=== PATIENT | male | born 1960 | race Caucasian/White ===

== ENCOUNTER 2016-04-12 21:16 | Emergency (ER) | payer BC ==
[2016-04-12] MEDS ORDERED: Sodium Chloride 0.9% 1,000 ML IV ONE (22:13)
[2016-04-12 23:07] LABS: CHLORIDE,CL 103 mmol/L (98-110); SODIUM,NA 137 mmol/L (136-146)
--- NOTE | 2016-04-12 23:18 | EDM.PDOC ---
ED HPI RENAL/ - General Chief Complaint: Genitourinary Problem Stated Complaint: PT HAS BLOOD IN URINE Time Seen by Provider: 04/12/16 22:15 Source of Information: Reports: Patient History Limitations: Reports: No limitations - History of Present Illness INITIAL COMMENTS - FREE TEXT/NARRATIVE: History of present illness: [25-year-old male coming in complaining of hematuria. Patient indicates that he has had bladder infections before and he is now having back pain.] Review of systems: As per history of present illness and below otherwise all systems reviewed and negative. Past medical history: As per history of present illness and as reviewed below otherwise noncontributory. Surgical history: As per history of present illness and as reviewed below otherwise noncontributory. Social history: No reported history of drug or alcohol abuse. Family history: As per history of present illness and as reviewed below otherwise noncontributory. Physical exam: HEENT: Atraumatic, normocephalic, pupils reactive, negative for conjunctival pallor or scleral icterus, mucous membranes moist, throat clear, neck supple, nontender, trachea midline. Lungs: Clear to auscultation, breath sounds equal bilaterally, chest nontender. Heart: S1S2, regular, negative for clicks, rubs, or JVD. Abdomen: Soft, nondistended, nontender. Negative for masses or hepatosplenomegaly. Positive costovertebral tenderness. Pelvis: Stable nontender. Genitourinary: Deferred. Rectal: Deferred. Extremities: Atraumatic, negative for cords or calf pain. Neurovascular unremarkable. Neuro: Awake, alert, oriented. Cranial nerves II through XII unremarkable. Cerebellum unremarkable. Motor and sensory unremarkable throughout. Exam nonfocal. Diagnostics: [UA, CBC, CMP] Therapeutics: [] Impression: [UTI] Plan: [] Definitive disposition and diagnosis as appropriate pending reevaluation and review of above. - Related Data Allergies/ADRs: Allergies Allergy/AdvReac Type Severity Reaction Status Date / Time No Known Allergies Allergy Verified 04/12/16 21:52 Home Meds: Home Meds . 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, s/p colostomy and colostomy closure '- Genitourinary History: Reports: None Musculoskeletal History: Reports: Fracture Other Musculoskeletal History: fx right foot Neurological History: Reports: None Psychiatric History: Reports: None Endocrine/Metabolic History: Reports: Obesity/BMI 30+ Hematologic History: Reports: None Immunologic History: Reports: None Oncologic (Cancer) History: Reports: None Dermatologic History: Reports: None Other Dermatologic History: recent hx of bilateral leg edema and ulcer on right leg - Infectious Disease History Infectious Disease History: Reports: Chicken pox, Measles - Past Surgical History Head Surgeries/Procedures: Reports: None HEENT Surgical History: Reports: Tonsillectomy Cardiovascular Surgical History: Reports: None Respiratory Surgical History: Reports: None GI Surgical History: Reports: Colostomy, Hernia, abdominal Other GI Surgeries/Procedures: hx of incisional hernia repair with mesh Male Surgical History: Reports: None Endocrine Surgical History: Reports: None Neurological Surgical History: Reports: None Musculoskeletal Surgical History: Reports: None Oncologic Surgical History: Reports: None Dermatological Surgical History: Reports: None Social & Family History - Family History Family Medical History: Noncontributory - Tobacco Use Smoking Status *Q: Never Smoker Used Tobacco, but Quit: Yes Second Hand Smoke Exposure: No - Caffeine Use Caffeine Use: Reports: None - Alcohol Use Days Per Week of Alcohol Use: 1 Number of Drinks Per Day: 5 Total Drinks Per Week: 5 - Recreational Drug Use Recreational Drug Use: No Drug Use in Last 12 Months: No ED ROS GENERAL - Review of Systems Review Of Systems: See Below (See history of present illness) ED EXAM, RENAL/ - Physical Exam Exam: See Below (See history of present illness) Course - Vital Signs Last Recorded V/S: Last Vital Signs Temp 37.2 C 04/12/16 21:53 Pulse 80 04/12/16 21:53 Resp 20 04/12/16 21:53 BP 172/80 H 04/12/16 21:53 Pulse Ox 95 04/12/16 21:53 - Orders/Labs/Meds Labs: Laboratory Tests 04/12/16 04/12/16 04/12/16 Range/Units 21:30 22:40 22:40 WBC 11.48 H (4.0-11.0) K/uL RBC 4.65 (4.50-5.90) M/uL Hgb 14.5 (13.0-17.0) g/dL Hct 44.2 (38.0-50.0) % MCV 95.1 (80.0-98.0) fL MCH 31.2 (27.0-32.0) pg MCHC 32.8 (31.0-37.0) g/dL RDW Std Deviation 46.9 (28.0-62.0) fl RDW Coeff of Sandee 14 (11.0-15.0) % Plt Count 112 L (150-400) K/uL MPV 9.60 (7.40-12.00) fL Neut % (Auto) 88.8 H (48.0-80.0) % Lymph % (Auto) 5.1 L (16.0-40.0) % Garrett % (Auto) 5.9 (0.0-15.0) % Eos % (Auto) 0.1 (0.0-7.0) % Baso % (Auto) 0.1 (0.0-1.5) % Neut # 10.2 H (1.4-5.7) K/uL Lymph # 0.6 (0.6-2.4) K/uL Garrett # 0.7 (0.0-0.8) K/uL Eos # 0.0 (0.0-0.7) K/uL Baso # 0.0 (0.0-0.1) K/uL Nucleated RBC % 0.0 /100WBC Nucleated RBCs # 0 K/uL Sodium 137 (136-146) mmol/L Potassium 4.4 (3.5-5.1) mmol/L Chloride 103 (98-110) mmol/L Carbon Dioxide 24 (21-31) mmol/L BUN 16 (6.0-23.0) mg/dL Creatinine 0.9 (0.6-1.5) mg/dL Est Cr Clr Drug Dosing 102.99 mL/min Estimated GFR (MDRD) > 60.0 ml/min Glucose 140 H (60-110) mg/dL Calcium 8.9 (8.8-10.8) mg/dL Total Bilirubin 1.4 (0.1-1.5) mg/dL AST 43 H (5-40) IU/L ALT 74 H (8-54) IU/L Alkaline Phosphatase 102 (40-150) Total Protein 7.7 (6.0-8.0) g/dL Albumin 4.0 (3.5-5.0) g/dL Globulin 3.7 H (2.0-3.5) g/dL Albumin/Globulin Ratio 1.1 L (1.3-2.8) Urine Color YELLOW Urine Appearance CLOUDY Urine pH 7.0 (5.0-8.0) Ur Specific [place] 1.020 (1.001-1.035) Urine Protein >=300 (NEGATIVE) mg/dL Urine Glucose (UA) 100 H (NEGATIVE) mg/dL Urine Ketones 15 H (NEGATIVE) mg/dL Urine Occult Blood LARGE H (NEGATIVE) Urine Nitrite POSITIVE H (NEGATIVE) Urine Bilirubin NEGATIVE (NEGATIVE) Urine Urobilinogen 4.0 H (<2.0) EU/dL Ur Leukocyte Esterase MODERATE (NEGATIVE) Urine RBC TOO NUMBEROUS TO CT (0-2/HPF) Urine WBC 30-35 (0-5/HPF) Ur Epithelial Cells OCCASIONAL (NONE-FEW) Urine Bacteria FEW (NEGATIVE) Urinalysis Comment SEE COMMENT Meds: Medications Discontinued Medications Generic Name Dose Route Start Last Admin Trade Name Freq PRN Reason Stop Dose Admin Sodium Chloride 1,000 mls @ 999 mls/hr 04/12/16 22:13 04/12/16 22:46 Normal Saline IV 04/12/16 23:13 999 mls/hr STAT ONE Administration Departure - Departure Time of Disposition: 23:17 Disposition: Home, Self-Care 01 Condition: good Clinical Impression: UTI, Urinary tract infectious disease Instructions: Urinary Tract Infection, Adult, [id number] Forms: ED Department Discharge Additional Instructions: The following information is given to patients seen in the emergency department who are being discharged to home. This information is to outline your options for follow-up care. We provide all patients seen in our emergency department with a follow-up referral. The need for follow-up, as well as the timing and circumstances, are variable depending upon the specifics of your emergency department visit. If you don't have a primary care physician on staff, we will provide you with a referral. We always advise you to contact your personal physician following an emergency department visit to inform them of the circumstance of the visit and for follow-up with them and/or the need for any referrals to a consulting specialist. The emergency department will also refer you to a specialist when appropriate. This referral assures that you have the opportunity for follow-up care with a specialist. All of these measure are taken in an effort to provide you with optimal care, which includes your follow-up. Under all circumstances we always encourage you to contact your private physician who remains a resource for coordinating your care. When calling for follow-up care, please make the office aware that this follow-up is from your recent emergency room visit. If for any reason you are refused follow-up, please contact the [facility] Emergency Department at and asked to speak to the emergency department charge nurse. Take all medication as directed Followup with primary care provider one to 2 days Return to ED as needed as discussed
[2016-04-12 23:55] VITALS: BP 155/75
== END 2016-04-12 23:45 | disposition home or self-care (01) ==
LOC: MW.ED 21:16
DX: N39.0 Urinary tract infection, site not specified (principal); E66.9 Obesity, unspecified
CPT/HCPCS: 36415; 80053; 81001; 85025; 96360; 99283; J7040

== ENCOUNTER → 2016-06-15 | Outpatient (CLI) | payer BC ==
--- NOTE | 2016-06-16 11:04 | US ---
EXAM DATE: 06/15/16 PATIENT'S AGE: 55 Patient: KASSIE MOTTA Facility: [place], [place] Site . Site : [id number] Study: US Extremity Venous [id number] 5:36:58 PM Ordering Physician: Gelacio Yen Final Report: INDICATION: Right leg swelling, history of DVT TECHNIQUE: Ultrasound venous duplex lower right extremity. Compression venous exam was performed using santos-scale, color Doppler, and spectral Doppler imaging. COMPARISON: None FINDINGS: Sonographic imaging demonstrates the right common femoral, deep femoral, superficial femoral, popliteal, posterior tibial and greater saphenous veins to be compressible with normal color Doppler blood flow. Left common femoral veins not evaluated on submitted images. IMPRESSION: 1. Technically limited study. No evidence of right lower extremity DVT. Dictated by Frederick Darnell MD @ 06/15/2016 5:41:28 PM Dictated by: Frederick Darnell MD @ 06/15/2016 17:41:34 (Electronic Signature) Report Signed by Proxy. MEHRAN
== END ==
LOC: MW.US 14:55
PROVIDERS: ATTEND Emergency Medicine
DX: M79.89 Other specified soft tissue disorders (principal)
CPT/HCPCS: 93971-26-RT; 93971-RT

== ENCOUNTER 2016-06-20 09:13 | Emergency (ER) | payer BC ==
[2016-06-20] MEDS ORDERED: Benzocaine 20% Topical Spray UD MUCMEM ONE (10:07)
[2016-06-20] MEDS ORDERED: Lidocaine 2% Viscous Solution 15 ML Cup PO ONE (10:07)
--- NOTE | 2016-06-20 10:08 | EDM.PDOC ---
ED HPI ENT - General Chief Complaint: ENT Problem Stated Complaint: TOOTH PAIN Time Seen by Provider: 06/20/16 10:03 Source of Information: Reports: Patient History Limitations: Reports: No limitations - History of Present Illness INITIAL COMMENTS - FREE TEXT/NARRATIVE: HISTORY AND PHYSICAL: [55-year-old male presenting with tooth pain #6. His dentist has been out of town for the last 2 weeks. he has an appointment tomorrow] History of Present Illness: [Patient started having pain a week ago. Now has some edema to the lower sinus on the right] Review of Systems: As per history of present illness and below otherwise all systems reviewed and negative. Past medical history: As per history of present illness and as reviewed below otherwise noncontributory. Surgical history: As per history of present illness and as reviewed below otherwise noncontributory. Social history: No reported history of drug or alcohol abuse. Family history: As per history of present illness and as reviewed below otherwise noncontributory. Physical exam: Alert gentleman answering questions appropriately. Follow directions HEENT: Atraumatic, normocehpalic, pupils reactive, negative for conjunctival pallor or scleral icterus, mucous membranes moist, throat clear, neck supple, nontender, trachea midline. Mild edema and erythema noted to the gumline tooth #6. Tender upon palpation. Right maxillary sinus with mild erythema and edema. Lungs: Clear to auscultation, breath sounds equal bilaterally, chest non tender. Heart: S1S2, regular, negative for clicks, rubs, or JVD. Abdomen: Soft, nondistended, nontender. Negative for masses or hepatossplenmegaly. Negative for costovertebral tenderness. Extremities: Atraumatic, negative for cords or calf pain. Neurovascular unremarkable. Neuro: Awake, alert, oriented. Cranial nerves II through XII unremarkable. Cerebellum unremarkable. Motor and sensory unremarkable throughout. Exam nonfocal. Diagnostics: [] Therapeutics: [Dental balls] Impression: [] Tooth abscess Plan: [Antibiotics to be given today Cephalexin 500mg 1 capsule 3 times a day x7 days] Definitive disposition and diagnosis as appropriate pending reevaluation and review of above. Timing/Duration: Reports: Day(s):, Sudden onset Severity: moderate Location: Reports: mouth Quality: Reports: Ache, Throbbing Improves with: Reports: None Worsens with: Reports: Eating Associated Symptoms: Reports: no other symptoms - Related Data Allergies/ADRs: Allergies Allergy/AdvReac Type Severity Reaction Status Date / Time No Known Allergies Allergy Verified 06/20/16 09:22 Home Meds: Home Meds . 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, s/p colostomy and colostomy closure - Genitourinary History: Reports: None Musculoskeletal History: Reports: Fracture Other Musculoskeletal History: fx right foot Neurological History: Reports: None Psychiatric History: Reports: None Endocrine/Metabolic History: Reports: Obesity/BMI 30+ Hematologic History: Reports: Other (see below) Other Hematologic History: DVT Immunologic History: Reports: None Oncologic (Cancer) History: Reports: None Dermatologic History: Reports: None Other Dermatologic History: recent hx of bilateral leg edema and ulcer on right leg - Infectious Disease History Infectious Disease History: Reports: Chicken pox - Past Surgical History Head Surgeries/Procedures: Reports: None HEENT Surgical History: Reports: Tonsillectomy Cardiovascular Surgical History: Reports: None Respiratory Surgical History: Reports: None GI Surgical History: Reports: Colostomy, Hernia, abdominal Other GI Surgeries/Procedures: hx of incisional hernia repair with mesh Male Surgical History: Reports: None Endocrine Surgical History: Reports: None Neurological Surgical History: Reports: None Musculoskeletal Surgical History: Reports: None Oncologic Surgical History: Reports: None Dermatological Surgical History: Reports: None Social & Family History - Family History Family Medical History: Noncontributory - Tobacco Use Smoking Status *Q: Never Smoker Used Tobacco, but Quit: Yes Second Hand Smoke Exposure: No - Caffeine Use Caffeine Use: Reports: None - Alcohol Use Days Per Week of Alcohol Use: 3 Number of Drinks Per Day: 3 Total Drinks Per Week: 9 - Recreational Drug Use Recreational Drug Use: No Drug Use in Last 12 Months: No ED ROS ENT - Review of Systems Review Of Systems: ROS reveals no pertinent complaints other than HPI. ED EXAM, ENT - Physical Exam Exam: See Below (see dictation) Course - Vital Signs Last Recorded V/S: Last Vital Signs Temp 36.3 C 06/20/16 09:22 Pulse 68 06/20/16 09:22 Resp 18 06/20/16 09:22 BP 184/93 H 06/20/16 09:22 Pulse Ox 97 06/20/16 09:22 Departure - Departure Time of Disposition: 10:12 Disposition: Home, Self-Care 01 Condition: good Clinical Impression: Tooth abscess Forms: ED Department Discharge Additional Instructions: The following information is given to patients seen in the emergency department who are being discharged to home. This information is to outline your options for follow-up care. We provide all patients seen in our emergency department with a follow-up referral. The need for follow-up, as well as the timing and circumstances, are variable depending upon the specifics of your emergency department visit. If you don't have a primary care physician on staff, we will provide you with a referral. We always advise you to contact your personal physician following an emergency department visit to inform them of the circumstance of the visit and for follow-up with them and/or the need for any referrals to a consulting specialist. The emergency department will also refer you to a specialist when appropriate. This referral assures that you have the opportunity for followup care with a specialist. All of these measure are taken in an effort to provide you with optimal care, which includes your followup. Under all circumstances we always encourage you to contact your private physician who remains a resource for coordinating your care. When calling for followup care, please make the office aware that this follow-up is from your recent emergency room visit. If for any reason you are refused follow-up, please contact the [facility] emergency department at and asked to speak to the emergency department charge nurse. Keep your dentist appointment tomorrow for followup care
[2016-06-20 10:46] VITALS: BP 167/65
== END 2016-06-20 10:34 | disposition home or self-care (01) ==
LOC: MW.ED 09:13
DX: K04.7 Periapical abscess without sinus (principal); E66.9 Obesity, unspecified; Z68.42 Body mass index [BMI] 45.0-49.9, adult; Z98.890 Other specified postprocedural states
CPT/HCPCS: 99282; A9270; 99283

== ENCOUNTER 2016-11-09 05:19 | Emergency (ER) | payer BC ==
--- NOTE | 2016-11-09 05:33 | EDM.PDOC ---
ED HPI GENERAL MEDICAL PROBLEM - General Chief Complaint: Genitourinary Problem Stated Complaint: PEEING BLOOD Time Seen by Provider: 11/09/16 05:33 Source of Information: Reports: Patient - History of Present Illness INITIAL COMMENTS - FREE TEXT/NARRATIVE: HISTORY AND PHYSICAL: History of present illness: [] Patient presents with 2 days of urinary frequency and dysuria no fever nausea vomiting chills sweats Review of systems: As per history of present illness and below otherwise all systems reviewed and negative. Past medical history: As per history of present illness and as reviewed below otherwise noncontributory. Surgical history: As per history of present illness and as reviewed below otherwise noncontributory. Social history: No reported history of drug or alcohol abuse. Family history: As per history of present illness and as reviewed below otherwise noncontributory. Physical exam: HEENT: Atraumatic, normocephalic, pupils reactive, negative for conjunctival pallor or scleral icterus, mucous membranes moist, throat clear, neck supple, nontender, trachea midline. Lungs: Clear to auscultation, breath sounds equal bilaterally, chest nontender. Heart: S1S2, regular, negative for clicks, rubs, or JVD. Abdomen: Soft, nondistended, nontender. Negative for masses or hepatosplenomegaly. Negative for costovertebral tenderness. Pelvis: Stable nontender. Genitourinary: Deferred. Rectal: Deferred. Extremities: Atraumatic, negative for cords or calf pain. Neurovascular unremarkable. Neuro: Awake, alert, oriented. Cranial nerves II through XII unremarkable. Cerebellum unremarkable. Motor and sensory unremarkable throughout. Exam nonfocal. Diagnostics: []UA with culture Therapeutics: []Levaquin 500 mg by mouth now and daily #10 no refill Impression: []UTI Definitive disposition and diagnosis as appropriate pending reevaluation and review of above. - Related Data Allergies Allergy/AdvReac Type Severity Reaction Status Date / Time No Known Allergies Allergy Verified 11/09/16 05:32 Home Meds: Home Meds . 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, s/p colostomy and colostomy closure '-' Genitourinary History: Reports: None Musculoskeletal History: Reports: Fracture Other Musculoskeletal History: fx right foot Neurological History: Reports: None Psychiatric History: Reports: None Endocrine/Metabolic History: Reports: Obesity/BMI 30+ Hematologic History: Reports: Other (See Below) Other Hematologic History: DVT Immunologic History: Reports: None Oncologic (Cancer) History: Reports: None Dermatologic History: Reports: None Other Dermatologic History: recent hx of bilateral leg edema and ulcer on right leg - Infectious Disease History Infectious Disease History: Reports: Chicken Pox - Past Surgical History GI Surgical History: Reports: Colostomy, Hernia, Abdominal Social & Family History - Family History Family Medical History: Noncontributory - Tobacco Use Smoking Status *Q: Never Smoker Used Tobacco, but Quit: Yes Second Hand Smoke Exposure: No - Caffeine Use Caffeine Use: Reports: None - Alcohol Use Days Per Week of Alcohol Use: 3 Number of Drinks Per Day: 3 Total Drinks Per Week: 9 - Recreational Drug Use Recreational Drug Use: No Drug Use in Last 12 Months: No ED ROS GENERAL - Review of Systems Review Of Systems: ROS reveals no pertinent complaints other than HPI. ED EXAM, GENERAL - Physical Exam Exam: See Below Course - Vital Signs Last Recorded V/S: Last Vital Signs Temp 36.9 C 11/09/16 05:24 Pulse 86 11/09/16 05:24 Resp 20 11/09/16 05:24 BP 166/88 H 11/09/16 05:24 Pulse Ox 95 11/09/16 05:24 - Orders/Labs/Meds Orders: Active Orders 24 hr Category Date Time Status CULTURE URINE [RM] Stat Lab 11/09/16 05:43 Uncollected Levofloxacin [Levaquin] Med 11/09/16 05:44 Once 500 mg PO ONETIME ONE Labs: Laboratory Tests 11/09/16 Range/Units 05:25 Urine Color RED Urine Appearance CLOUDY Urine pH 5.5 (5.0-8.0) Ur Specific [place] 1.020 (1.001-1.035) Urine Protein 100 (NEGATIVE) mg/dL Urine Glucose (UA) NEGATIVE (NEGATIVE) mg/dL Urine Ketones NEGATIVE (NEGATIVE) mg/dL Urine Occult Blood LARGE H (NEGATIVE) Urine Nitrite POSITIVE H (NEGATIVE) Urine Bilirubin SMALL H (NEGATIVE) Urine Urobilinogen 2.0 H (<2.0) EU/dL Ur Leukocyte Esterase MODERATE (NEGATIVE) Urine RBC TOO NUMBEROUS TO CT (0-2/HPF) Urine WBC 25-30 (0-5/HPF) Ur Epithelial Cells FEW (NONE-FEW) Urine Bacteria FEW (NEGATIVE) Departure - Departure Time of Disposition: 05:45 Disposition: Home, Self-Care 01 Condition: Good Clinical Impression: UTI (urinary tract infection) - Discharge Information Referrals: Arturo Brizuela MD [Primary Care Provider] - Forms: ED Department Discharge Additional Instructions: Medication as prescribed Return if symptoms persist or worsen or fever nausea vomiting chills sweats despite treatment Follow-up with primary care in 2 weeks The following information is given to patients seen in the emergency department who are being discharged to home. This information is to outline your options for follow-up care. We provide all patients seen in our emergency department with a follow-up referral. The need for follow-up, as well as the timing and circumstances, are variable depending upon the specifics of your emergency department visit. If you don't have a primary care physician on staff, we will provide you with a referral. We always advise you to contact your personal physician following an emergency department visit to inform them of the circumstance of the visit and for follow-up with them and/or the need for any referrals to a consulting specialist. The emergency department will also refer you to a specialist when appropriate. This referral assures that you have the opportunity for follow-up care with a specialist. All of these measure are taken in an effort to provide you with optimal care, which includes your follow-up. Under all circumstances we always encourage you to contact your private physician who remains a resource for coordinating your care. When calling for follow-up care, please make the office aware that this follow-up is from your recent emergency room visit. If for any reason you are refused follow-up, please contact the [facility] emergency department at and asked to speak to the emergency department charge nurse. - My Orders Last 24 Hours: My Active Orders 11/09/16 05:43 CULTURE URINE [RM] Stat 11/09/16 05:44 Levofloxacin [Levaquin] 500 mg PO ONETIME ONE - Assessment/Plan Last 24 Hours: My Active Orders 11/09/16 05:43 CULTURE URINE [RM] Stat 11/09/16 05:44 Levofloxacin [Levaquin] 500 mg PO ONETIME ONE
[2016-11-09] MEDS ORDERED: Levofloxacin 500 MG Tab PO ONE (05:44)
[2016-11-09 06:00] VITALS: BP 152/81
== END 2016-11-09 05:57 | disposition home or self-care (01) ==
LOC: MW.ED 05:19
DX: N39.0 Urinary tract infection, site not specified (principal); E66.9 Obesity, unspecified; Z93.3 Colostomy status; Z86.718 Personal history of other venous thrombosis and embolism; Z98.890 Other specified postprocedural states; Z87.891 Personal history of nicotine dependence; Z68.43 Body mass index [BMI] 50.0-59.9, adult
CPT/HCPCS: 81001; 87086; 99283; A9270; 87088; 87186; 99282

== ENCOUNTER 2018-04-19 07:50 | Day surgery (SDC) | payer BC ==
[2018-04-19] MEDS ORDERED: Lactated Ringers 1,000 ML IV SCH ×2 (08:00→11:00)
--- NOTE | 2018-04-19 08:49 | PCM.PREANE ---
Preanesthetic Assessment - Anesthesia/Transfusion/Family Hx Anesthesia History: Prior Anesthesia Without Reaction Family History of Anesthesia Reaction: No Transfusion History: No Prior Transfusion(s) Intubation History: Unknown - Review of Systems General: No Symptoms Pulmonary: No Symptoms Cardiovascular: No Symptoms Gastrointestinal: No Symptoms, Other (h/o colon polyp 3 years ago) Neurological: No Symptoms Other: Reports: None - Physical Assessment NPO Status Date: 04/18/18 NPO Status Time: 23:00 O2 Sat by Pulse Oximetry: 96 Respiratory Rate: 18 Vital Signs: Last Vital Signs Temp 36.1 C 04/19/18 08:10 Pulse 56 L 04/19/18 08:10 Resp 18 04/19/18 08:10 BP 158/85 H 04/19/18 08:10 Pulse Ox 96 04/19/18 08:10 Height: 1.83 m Weight: 168.736 kg ASA Class: 3 Mental Status: Alert & Oriented x3 Airway Class: Mallampati = 3 Dentition: Reports: Normal Dentition (broken tooth x1 rt. lower (back0) Thyro-Mental Finger Breadths: 2 Mouth Opening Finger Breadths: 3 ROM/Head Extension: Full Lungs: Clear to Auscultation, Normal Respiratory Effort Cardiovascular: Regular Rate, Regular Rhythm - Allergies Allergies/Adverse Reactions: Allergies Allergy/AdvReac Type Severity Reaction Status Date / Time No Known Allergies Allergy Verified 04/13/18 15:48 - Anesthesia Plan Pre-Op Medication Ordered: None - Acknowledgements Anesthesia Type Planned: MAC Pt an Appropriate Candidate for the Planned Anesthesia: Yes Alternatives and Risks of Anesthesia Discussed w Pt/Guardian: Yes Pt/Guardian Understands and Agrees with Anesthesia Plan: Yes PreAnesthesia Questionnaire - Past Health History Medical/Surgical History: Denies Medical/Surgical History HEENT History: Reports: None Cardiovascular History: Reports: Blood Clots/VTE/DVT Other Cardiovascular History: 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 Genitourinary History: Reports: None Musculoskeletal History: Reports: Fracture Other Musculoskeletal History: fx right foot Neurological History: Reports: None Psychiatric History: Reports: None Endocrine/Metabolic History: Reports: Obesity/BMI 30+ (morbid obesity BMI 50.5) Hematologic History: Reports: None Immunologic History: Reports: None Oncologic (Cancer) History: Reports: None Dermatologic History: Reports: Other (See Below) Other Dermatologic History: hx ulcer on right leg - Infectious Disease History Infectious Disease History: Reports: Chicken Pox - Past Surgical History Head Surgeries/Procedures: Reports: None HEENT Surgical History: Reports: Tonsillectomy Cardiovascular Surgical History: Reports: None Respiratory Surgical History: Reports: None GI Surgical History: Reports: Colon, Colonoscopy (last 3 years ago), Colostomy ( and colostomy closure), Hernia, Abdominal, Other (See Below) (exploratory laparotomy) Other GI Surgeries/Procedures: hx incisional hernia repair Male Surgical History: Reports: None Endocrine Surgical History: Reports: None Neurological Surgical History: Reports: None Musculoskeletal Surgical History: Reports: None Oncologic Surgical History: Reports: None Dermatological Surgical History: Reports: None - SUBSTANCE USE Smoking Status *Q: Never Smoker Recreational Drug Use History: No - HOME MEDS Home Medications: Home Meds Amino Ac/Whey Prot Con & Isol [Whey Protein Powder] 1 dose PO DAILY 04/13/18 [ History] - CURRENT (IN HOUSE) MEDS Current Meds: Current Medications Lactated Ringer's (Ringers, Lactated) 1,000 mls @ 125 mls/hr IV ASDIRECTED [facility] Last Admin: 04/19/18 08:30 Dose: 125 mls/hr
[2018-04-19] MEDS ORDERED: Ketamine 500 mg/10 ML MDV ONE (10:07)
[2018-04-19] MEDS ORDERED: Midazolam 1 MG/ML 2 ML SDV ONE (10:12)
[2018-04-19] MEDS ORDERED: Propofol 200 MG/20 ML SDV ONE (10:12)
--- NOTE | 2018-04-19 10:47 | PCM.OPNOTE ---
- General Post-Op/Procedure Note Date of Surgery/Procedure: 04/19/18 Operative Procedure(s): Colonoscopy Pre Op Diagnosis: Personal history of colon polyps. Post-Op Diagnosis: No evidence of neoplasia. Poor prep. Anesthesia Technique: MAC (ASA III) Primary Surgeon: Dragan Low [place] Floor Walker: Lelia Morales Condition: Good Free Text/Narrative:: DICTATION [id number] CPT CODE 35024
--- NOTE | 2018-04-19 11:19 | PCM48HPAN ---
Post Anesthesia Note - EVALUATION WITHIN 48HRS OF ANESTHETIC Vital Signs in Normal Range: Yes Patient Participated in Evaluation: Yes Respiratory Function Stable: Yes Airway Patent: Yes Cardiovascular Function Stable: Yes Hydration Status Stable: Yes Pain Control Satisfactory: Yes Nausea and Vomiting Control Satisfactory: Yes Mental Status Recovered: Yes Resp Rate: 13 - COMMENTS/OBSERVATIONS Free Text/Narrative:: no anesthesia problems
[2018-04-19 11:39] VITALS: BP 141/60
--- NOTE | 2018-04-19 12:13 | OR ---
SURGEON: Dragan Low M.D. DATE OF PROCEDURE: 04/19/2018 OPERATION PERFORMED: Colonoscopy. ANESTHESIA: MAC. ASA CLASSIFICATION: III. PREOPERATIVE DIAGNOSIS: Personal history of colon polyps. POSTOPERATIVE DIAGNOSIS: No evidence of neoplasia. DESCRIPTION OF PROCEDURE: The patient was taken to the endoscopy room and positioned on the endoscopy table in the left lateral decubitus position. Time-out was called for appropriate identification of the patient and procedure. Monitored anesthesia care was provided. The colonoscope was introduced into the rectum and advanced with minimal difficulty to the cecum. The colonoscope was retroflexed to visualize the ascending colon from below. The cecum was identified by internal landmarks. The patient has a large amount of retained viscid stool making visualization quite difficult and certainly a small polyp could have been missed. The colonoscope was slowly withdrawn. The cecum, ascending colon, hepatic flexure, transverse colon, splenic flexure, descending colon, sigmoid colon, rectum were reasonably well visualized, given the inadequacy of the prep. No obvious tumor masses were identified. No diverticular changes were noted. I did not see an area of anastomosis and certainly no obvious anastomotic stricture was identified. There were no angiodysplastic changes. Once the colonoscope was withdrawn to the rectum, it was retroflexed to visualize the anal orifice from above. Again, no tumors or polyps were seen and there were no acute hemorrhoidal changes. The colonoscope was then straightened, the rectum aspirated, and the colonoscope removed. The patient tolerated the procedure well and was taken to recovery room in stable condition. TRACE / BLADIMIR /[id number]
== END 2018-04-19 11:50 | disposition home or self-care (01) ==
LOC: MW.SDS 07:50
PROVIDERS: ATTEND Surgery
DX: Z12.11 Encounter for screening for malignant neoplasm of colon (principal); I82.441 Acute embolism and thrombosis of right tibial vein; K43.9 Ventral hernia without obstruction or gangrene; E66.9 Obesity, unspecified; Z68.43 Body mass index [BMI] 50.0-59.9, adult
CPT/HCPCS: 45378; J2001; J2250; J2704; J7120

== ENCOUNTER 2018-04-21 21:56 | Emergency (ER) | payer BC ==
--- NOTE | 2018-04-21 22:24 | EDM.PDOC ---
ED HPI GENERAL MEDICAL PROBLEM - General Chief Complaint: ENT Problem Stated Complaint: NOSE BLEED Time Seen by Provider: 04/21/18 22:12 - History of Present Illness INITIAL COMMENTS - FREE TEXT/NARRATIVE: HISTORY AND PHYSICAL: History of present illness: The patient is a 57 y/o male who presents with complaints of bleeding from the left side of his nose that started this evening. He says he put some tissue in there and it seemed to stop the bleeding. The patient underwent a colonoscopy yesterday for which she received IV sedation and had an oxygen mask in place and he is not sure if that contributed to the problem. The patient has no cough upper respiratory symptoms and he did not feel any blood going down the back of his throat. The patient says he may have sleep apnea and he needs to be tested for that and he does snore at night but he is not currently on a sleep apnea machine. The patient is concerned about the bleeding and came for evaluation. He is currently on no anticoagulation therapy. Review of systems: As per history of present illness and below otherwise all systems reviewed and negative. Past medical history: As per history of present illness and as reviewed below otherwise noncontributory. Surgical history: As per history of present illness and as reviewed below otherwise noncontributory. Social history: No reported history of drug or alcohol abuse. Family history: As per history of present illness and as reviewed below otherwise noncontributory. Physical exam: General: Well-developed well-nourished overweight man who is nontoxic and vital signs are noted by me. I pieced of tissue is in his left nares which she removed on my evaluation. HEENT: Atraumatic, normocephalic, pupils reactive, negative for conjunctival pallor or scleral icterus, mucous membranes moist, throat clear, neck supple, nontender, trachea midline. There is no posterior oropharyngeal bleeding. Bilateral nasal mucosa and septum's are excoriated and erythematous without any bleeding or lesion seen on the right but on the left side in the anterior septum there is a scab-like area visualized without active bleeding. Lungs: Clear to auscultation, breath sounds equal bilaterally, chest nontender. Heart: S1S2, regular rate and rhythm no overt murmurs Abdomen: Soft, nondistended, nontender. NABS Pelvis: Deferred Genitourinary: Deferred. Rectal: Deferred. Extremities: Atraumatic, full range of motion without deficits Neurovascular unremarkable. Neuro: Awake, alert, oriented. Cranial nerves II through XII unremarkable. Cerebellum unremarkable. Motor and sensory unremarkable throughout. Exam nonfocal. Diagnostics: [] Therapeutics: I gave the patient and nasal clip to utilize if there is any more oozing and I instructed him on how to place Vaseline on a Q-tip and place the Vaseline on his nasal septum promote natural healing of the excoriated area. Impression: Minor epistaxis left of anterior septum Definitive disposition and diagnosis as appropriate pending reevaluation and review of above. 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 Genitourinary History: Reports: None Musculoskeletal History: Reports: Fracture Other Musculoskeletal History: fx right foot Neurological History: Reports: None Psychiatric History: Reports: None Endocrine/Metabolic History: Reports: Obesity/BMI 30+ (morbid obesity BMI 50.5) Hematologic History: Reports: None Immunologic History: Reports: None Oncologic (Cancer) History: Reports: None Dermatologic History: Reports: Other (See Below) Other Dermatologic History: hx ulcer on right leg - Infectious Disease History Infectious Disease History: Reports: Chicken Pox - Past Surgical History Head Surgeries/Procedures: Reports: None HEENT Surgical History: Reports: Tonsillectomy Cardiovascular Surgical History: Reports: None Respiratory Surgical History: Reports: None GI Surgical History: Reports: Colon, Colonoscopy (last 3 years ago), Colostomy ( and colostomy closure), Hernia, Abdominal, Other (See Below) (exploratory laparotomy) Other GI Surgeries/Procedures: hx incisional hernia repair Male Surgical History: Reports: None Endocrine Surgical History: Reports: None Neurological Surgical History: Reports: None Musculoskeletal Surgical History: Reports: None Oncologic Surgical History: Reports: None Dermatological Surgical History: Reports: None Social & Family History - Family History Family Medical History: Noncontributory - Tobacco Use Smoking Status *Q: Never Smoker - Caffeine Use Caffeine Use: Reports: None Caffeine Use Comment: "alot" - Recreational Drug Use Recreational Drug Use: No ED ROS GENERAL - Review of Systems Review Of Systems: ROS reveals no pertinent complaints other than HPI. ED EXAM, GENERAL - Physical Exam Exam: See Below (See dictation) Course - Vital Signs Last Recorded V/S: Last Vital Signs Temp 36.2 C 04/21/18 22:05 Pulse 55 L 04/21/18 22:05 Resp 18 04/21/18 22:05 BP 171/83 H 04/21/18 22:05 Pulse Ox 94 L 04/21/18 22:05 - Orders/Labs/Meds Orders: Active Orders 24 hr Category Date Time Status Communication Order [RC] STAT Care 04/21/18 22:18 Ordered Departure - Departure Time of Disposition: 22:23 Disposition: Home, Self-Care 01 Condition: Good Clinical Impression: Nosebleed - Discharge Information Additional Instructions: The following information is given to patients seen in the emergency department who are being discharged to home. This information is to outline your options for follow-up care. We provide all patients seen in our emergency department with a follow-up referral. The need for follow-up, as well as the timing and circumstances, are variable depending upon the specifics of your emergency department visit. If you don't have a primary care physician on staff, we will provide you with a referral. We always advise you to contact your personal physician following an emergency department visit to inform them of the circumstance of the visit and for follow-up with them and/or the need for any referrals to a consulting specialist. The emergency department will also refer you to a specialist when appropriate. This referral assures that you have the opportunity for followup care with a specialist. All of these measure are taken in an effort to provide you with optimal care, which includes your followup. Under all circumstances we always encourage you to contact your private physician who remains a resource for coordinating your care. When calling for followup care, please make the office aware that this follow-up is from your recent emergency room visit. If for any reason you are refused follow-up, please contact the [facility] emergency department at and ask to speak to the emergency department charge nurse. [facility] Primary care- Internal Medicine and Family [address] [address] Push hydration and use cool mist humidifier at sleep times and rest times to promote moisture in the air that you are breathing and to soothe the nasal passages. Please Pl., Vaseline or any petroleum-based product you have using a Q -tip gently inside the nose as shown to protect the area and keep it moisturized. Use nose clip you have been given as needed. Return to ER as needed and as discussed and call and schedule a follow-up appoint with your provider in the clinic - My Orders Last 24 Hours: My Active Orders 04/21/18 22:18 Communication Order [RC] STAT - Assessment/Plan Last 24 Hours: My Active Orders 04/21/18 22:18 Communication Order [RC] STAT
[2018-04-21 22:49] VITALS: BP 152/72
== END 2018-04-21 22:30 | disposition home or self-care (01) ==
LOC: MW.ED 21:56
DX: R04.0 Epistaxis (principal)
CPT/HCPCS: 99282; 99283

== ENCOUNTER 2018-06-23 20:42 | Emergency (ER) | payer BC ==
--- NOTE | 2018-06-23 20:51 | EDM.PDOC ---
ED HPI GENERAL MEDICAL PROBLEM - General Chief Complaint: Laceration Stated Complaint: LEFT LEG INJURY Time Seen by Provider: 06/23/18 20:44 Source of Information: Reports: Patient History Limitations: Reports: No Limitations - History of Present Illness INITIAL COMMENTS - FREE TEXT/NARRATIVE: HISTORY AND PHYSICAL: History of present illness: Patient is a 57-year-old male who presents to the emergency room with complaints of a laceration to his left lower extremity. He states he was getting into bed when a drawer from the face of the bed was out resulting in a laceration. He denies any other injury, trauma or falls. No current bleeding noted. States his tetanus has been updated within the last 5 years. Review of systems: As per history of present illness and below otherwise all systems reviewed and negative. Past medical history: As per history of present illness and as reviewed below otherwise noncontributory. Surgical history: As per history of present illness and as reviewed below otherwise noncontributory. Social history: See social history for further information Family history: As per history of present illness and as reviewed below otherwise noncontributory. Physical exam: General: Well-developed and well-nourished 57-year-old male. Alert and oriented. Nontoxic appearing and in no acute distress. HEENT: Atraumatic, normocephalic, pupils equal and reactive bilaterally, negative for conjunctival pallor or scleral icterus, mucous membranes moist, trachea midline. No drooling or trismus noted. No meningeal signs. No hot potato voice noted. Lungs: Clear to auscultation, breath sounds equal bilaterally, chest nontender. Heart: S1S2, regular rate and rhythm without overt murmur Abdomen: Soft, nondistended, obese, nontender. Skin: 4 cm laceration to left lateral midshin. Otherwise skin is intact, warm, dry. No lesions or rashes noted. Extremities: See skin for details, moves all extremities per self without difficulty or deficits, generalized lower extremity edema bilaterally (normal variance). Neurovascular unremarkable. Neuro: Awake, alert, oriented. Cranial nerves II through XII unremarkable. Cerebellum unremarkable. Motor and sensory unremarkable throughout. Exam nonfocal. Notes: 1% lidocaine was used to anesthetize the area. Chlorhexidine and wound wash was used to cleanse the area. Usual and customary procedures were followed for suture placement. 4-0 nylon, #9 interrupted sutures placed. Patient tolerated well. Bacitracin nonstick dressing applied with education.Supportive care measures were reviewed and discussed. Voices understanding and is agreeable to plan of care. Denies any further questions or concerns at this time. Diagnostics: None Therapeutics: Wound care, 1% lidocaine, bacitracin nonstick dressing Prescription: None Impression: Laceration Plan: 1. Keep the area clean and dry. Continue to monitor for signs of infection. Sutures to be removed in 7-10 days. 2. Tylenol and/or ibuprofen as needed for pain management. 3. Please follow-up with your primary care provider in the next 1-2 days. Return to the ED as needed and as discussed. Definitive disposition and diagnosis as appropriate pending reevaluation and review of above. 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 Genitourinary History: Reports: None Musculoskeletal History: Reports: Fracture Other Musculoskeletal History: fx right foot Neurological History: Reports: None Psychiatric History: Reports: None Endocrine/Metabolic History: Reports: Obesity/BMI 30+ (morbid obesity BMI 50.5) Hematologic History: Reports: None Immunologic History: Reports: None Oncologic (Cancer) History: Reports: None Dermatologic History: Reports: Other (See Below) Other Dermatologic History: hx ulcer on right leg - Infectious Disease History Infectious Disease History: Reports: Chicken Pox - Past Surgical History Head Surgeries/Procedures: Reports: None HEENT Surgical History: Reports: Tonsillectomy Cardiovascular Surgical History: Reports: None Respiratory Surgical History: Reports: None GI Surgical History: Reports: Colon, Colonoscopy (last 3 years ago), Colostomy ( and colostomy closure), Hernia, Abdominal, Other (See Below) (exploratory laparotomy) Other GI Surgeries/Procedures: hx incisional hernia repair Male Surgical History: Reports: None Endocrine Surgical History: Reports: None Neurological Surgical History: Reports: None Musculoskeletal Surgical History: Reports: None Oncologic Surgical History: Reports: None Dermatological Surgical History: Reports: None Social & Family History - Family History Family Medical History: Noncontributory - Caffeine Use Caffeine Use: Reports: None Caffeine Use Comment: "alot" ED ROS GENERAL - Review of Systems Review Of Systems: ROS reveals no pertinent complaints other than HPI. ED EXAM, SKIN/RASH Exam: See Below (See dictation) ED SKIN PROCEDURES - Laceration/Wound Repair Left leg Lac/Wound length In cm: 4 Appearance: Subcutaneous, Linear Anesthetic Type: Local Local Anesthesia - Lidocaine (Xylocaine): 1% Plain Local Anesthetic Volume: Other (7) Skin Prep: Chlorhexidine (Hibiciens), Saline Saline Irrigation (cc's): 25 Exploration/Debridement/Repair: Wound Explored, No Foreign Material Found Closed with: Sutures Suture Size: 4-0 # of Sutures: 9 Suture Type: Nylon Drain Placement: No Sterile Dressing Applied: Provider Tetanus Status Addressed: Yes Complications: No Course - Vital Signs Last Recorded V/S: Last Vital Signs Temp 97.7 F 06/23/18 20:44 Pulse 62 06/23/18 20:44 Resp 25 H 06/23/18 20:44 BP 152/86 H 06/23/18 20:44 Pulse Ox 98 06/23/18 20:44 - Orders/Labs/Meds Meds: Medications Discontinued Medications Generic Name Dose Route Start Last Admin Trade Name Prem PRN Reason Stop Dose Admin Bacitracin 1 dose 06/23/18 20:54 06/23/18 21:01 Bacitracin Oint 1 Gm TOP 06/23/18 20:55 1 dose ONETIME ONE Administration Lidocaine HCl 10 ml 06/23/18 20:45 06/23/18 20:54 Xylocaine-Mpf 1% INJECT 06/23/18 20:46 10 ml ONETIME ONE Administration Departure - Departure Time of Disposition: 21:17 Disposition: Home, Self-Care 01 Clinical Impression: Laceration - Discharge Information Instructions: Laceration Care, Adult, [id number] Referrals: Arturo Brizuela MD [Primary Care Provider] - Forms: ED Department Discharge Additional Instructions: The following information is given to patients seen in the emergency department who are being discharged to home. This information is to outline your options for follow-up care. We provide all patients seen in our emergency department with a follow-up referral. The need for follow-up, as well as the timing and circumstances, are variable depending upon the specifics of your emergency department visit. If you don't have a primary care physician on staff, we will provide you with a referral. We always advise you to contact your personal physician following an emergency department visit to inform them of the circumstance of the visit and for follow-up with them and/or the need for any referrals to a consulting specialist. The emergency department will also refer you to a specialist when appropriate. This referral assures that you have the opportunity for follow-up care with a specialist. All of these measure are taken in an effort to provide you with optimal care, which includes your follow-up. Under all circumstances we always encourage you to contact your private physician who remains a resource for coordinating your care. When calling for follow-up care, please make the office aware that this follow-up is from your recent emergency room visit. If for any reason you are refused follow-up, please contact the [facility] Emergency Department at and asked to speak to the emergency department charge nurse. [facility] Primary [facility] [address] [place] [id number] [facility] [address] [place] [id number] 1. Keep the area clean and dry. Continue to monitor for signs of infection. Sutures to be removed in 7-10 days. 2. Tylenol and/or ibuprofen as needed for pain management. 3. Please follow-up with your primary care provider in the next 1-2 days. Return to the ED as needed and as discussed.
[2018-06-23] MEDS ORDERED: Bacitracin Oint 1 GM U/D Packet TOP ONE (20:54)
[2018-06-23 22:36] VITALS: BP 134/85
== END 2018-06-23 21:30 | disposition home or self-care (01) ==
LOC: MW.ED 20:42
DX: S81.812A Laceration without foreign body, left lower leg, initial encounter (principal); Z91.09 Other allergy status, other than to drugs and biological substances; W22.8XXA Striking against or struck by other objects, initial encounter
CPT/HCPCS: 12002; 99282; J2001

== ENCOUNTER 2018-06-23 23:04 | Emergency (ER) | payer BC ==
[2018-06-23] MEDS ORDERED: Octyl 2-Cyanoacrylate 1 Tube TOP ONE (23:09)
[2018-06-23] MEDS ORDERED: Lidocaine/EPINEPHrine/Tetracaine Soln 1 ML TOP ONE (23:09)
[2018-06-23] MEDS ORDERED: predniSONE 20 MG Tab PO ONE (23:28)
[2018-06-23] MEDS ORDERED: diphenhydrAMINE 50 MG/ML SDV IM ONE (23:28)
--- NOTE | 2018-06-23 23:33 | EDM.PDOC ---
ED HPI GENERAL MEDICAL PROBLEM - General Chief Complaint: Allergic Reaction Stated Complaint: ALLERGIC REACTION Time Seen by Provider: 06/23/18 23:22 - History of Present Illness INITIAL COMMENTS - FREE TEXT/NARRATIVE: HISTORY AND PHYSICAL: History of present illness: The patient is a 57-year-old male who was seen here a few hours ago for a laceration to his left leg which was repaired without complication and who presents with complaints of swelling to the left side of his lip and eye that started when he was going to the pharmacy for his prescriptions. The patient is a known user of lisinopril/hydrochlorothiazide and has not had any issues with it. The patient denies any shortness of breath rash itching hives or any other speech swallow or breathing issues. He tells me that he has had a laceration on his face that was repaired in the past week using an anesthetic and had no complications. He has no localized reaction at the wound on the left leg. He was concerned so he came back for reevaluation Review of systems: As per history of present illness and below otherwise all systems reviewed and negative. Past medical history: As per history of present illness and as reviewed below otherwise noncontributory. Surgical history: As per history of present illness and as reviewed below otherwise noncontributory. Social history: No reported history of drug or alcohol abuse. Family history: As per history of present illness and as reviewed below otherwise noncontributory. Physical exam: : Well-developed well-nourished obese man who is nontoxic and speaking clearly and easily in the ED. He is not breathless and he has no speech changes HEENT: Atraumatic, normocephalic, pupils reactive, negative for conjunctival pallor or scleral icterus, mucous membranes moist, throat clear, neck supple, nontender, trachea midline. There is no oropharyngeal or tongue swelling and the left upper lip is seen to have some minimal soft tissue swelling and there is some minimal soft tissue swelling of his left eyelid. Lungs: Clear to auscultation, breath sounds equal bilaterally, chest nontender. Easing or stridor Heart: S1S2, regular, negative for clicks, rubs, or JVD. Abdomen: Soft, nondistended, nontender. NABS globular abdomen due to prior surgeries but no tenderness rebound or guarding. Pelvis: Stable nontender. Genitourinary: Deferred. Rectal: Deferred. Extremities: Atraumatic, dressing is in place in the left lower extremity negative for cords or calf pain. Neurovascular unremarkable. Neuro: Awake, alert, oriented. Cranial nerves II through XII unremarkable. Cerebellum unremarkable. Motor and sensory unremarkable throughout. Exam nonfocal. Skin: There is no redness urticaria rashes or itching seen by the patient Diagnostics: [] Therapeutics: Benadryl IM prednisone by mouth I discussed with the patient and that he is on lisinopril/ hydrochlorothiazide which he could have a sudden idiopathic angioedema from. I do not feel that this is related to his laceration repair as he has been exposed to anesthetics in the past without complication and he has no generalized allergic reaction and it is only localized to his face. I explained to them that this is very consistent with this medication and that he needs to stop taking it and discuss with a provider in the clinic changing that med Impression: Mild angioedema status post lisinopril use Definitive disposition and diagnosis as appropriate pending reevaluation and review of above. - Related Data Allergies Allergy/AdvReac Type Severity Reaction Status Date / Time lidocaine Allergy Facial Verified 06/23/18 23:09 Swelling marijuana Allergy Hives Verified 06/23/18 20:50 Home Meds: Home Meds Aspirin 325 mg PO ASDIRECTED 06/23/18 [History] Lisinopril/Hydrochlorothiazide [Lisinopril-HCTZ 10-12.5 MG] 1 tab PO DAILY 06/23 [History] cephALEXin [Keflex] 500 mg PO BID 5 Days #10 cap 06/23/18 [Rx] Past Medical History - Past Health History Medical/Surgical History: Denies Medical/Surgical History HEENT History: Reports: None Cardiovascular History: Reports: Blood Clots/VTE/DVT Other Cardiovascular History: 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 Genitourinary History: Reports: None Musculoskeletal History: Reports: Fracture Other Musculoskeletal History: fx right foot Neurological History: Reports: None Psychiatric History: Reports: None Endocrine/Metabolic History: Reports: Obesity/BMI 30+ Hematologic History: Reports: None Immunologic History: Reports: None Oncologic (Cancer) History: Reports: None Dermatologic History: Reports: Other (See Below) Other Dermatologic History: hx ulcer on right leg - Infectious Disease History Infectious Disease History: Reports: Chicken Pox - Past Surgical History Head Surgeries/Procedures: Reports: None HEENT Surgical History: Reports: Tonsillectomy Cardiovascular Surgical History: Reports: None Respiratory Surgical History: Reports: None GI Surgical History: Reports: Colon, Colonoscopy, Colostomy, Hernia, Abdominal, Other (See Below) Other GI Surgeries/Procedures: hx incisional hernia repair Male Surgical History: Reports: None Endocrine Surgical History: Reports: None Neurological Surgical History: Reports: None Musculoskeletal Surgical History: Reports: None Oncologic Surgical History: Reports: None Dermatological Surgical History: Reports: None Social & Family History - Family History Family Medical History: Noncontributory - Tobacco Use Smoking Status *Q: Never Smoker - Caffeine Use Caffeine Use: Reports: Coffee Caffeine Use Comment: "alot" - Recreational Drug Use Recreational Drug Use: No ED ROS ALLERGIC REACTION - Review of Systems Review Of Systems: ROS reveals no pertinent complaints other than HPI. ED EXAM GENERAL NO PERIP PULSE - Physical Exam Exam: See Below (See dictation) Course - Vital Signs Last Recorded V/S: Last Vital Signs Temp 36.7 C 06/23/18 23:09 Pulse 67 06/23/18 23:09 Resp 22 H 06/23/18 23:09 BP 150/77 H 06/23/18 23:09 Pulse Ox 96 06/23/18 23:09 - Orders/Labs/Meds Orders: Active Orders 24 hr Category Date Time Status diphenhydrAMINE [Benadryl] Med 06/23/18 23:28 Once 50 mg IM ONETIME ONE predniSONE Med 06/23/18 23:28 Once 20 mg PO ONETIME ONE Medication Orders Diphenhydramine HCl (Benadryl) 50 mg IM ONETIME ONE Stop: 06/23/18 23:29 Prednisone (Prednisone) 20 mg PO ONETIME ONE Stop: 06/23/18 23:29 Meds: Medications Generic Name Dose Route Start Last Admin Trade Name Freq PRN Reason Stop Dose Admin Diphenhydramine HCl 50 mg 06/23/18 23:28 Benadryl IM 06/23/18 23:29 ONETIME ONE Prednisone 20 mg 06/23/18 23:28 Prednisone PO 06/23/18 23:29 ONETIME ONE Discontinued Medications Generic Name Dose Route Start Last Admin Trade Name Prem PRN Reason Stop Dose Admin Lidocaine/Tetracaine 1 ml 06/23/18 23:09 Let Soln TOP 06/23/18 23:10 ONETIME ONE Octyl Cyanoacrylate 1 applic 06/23/18 23:09 Dermabond Advance TOP 06/23/18 23:10 ONETIME ONE Departure - Departure Time of Disposition: 23:31 Disposition: Home, Self-Care 01 Condition: Good Clinical Impression: Angioedema due to angiotensin converting enzyme inhibitor (JOHN-I) - Discharge Information Referrals: PCP,None [Primary Care Provider] - Additional Instructions: The following information is given to patients seen in the emergency department who are being discharged to home. This information is to outline your options for follow-up care. We provide all patients seen in our emergency department with a follow-up referral. The need for follow-up, as well as the timing and circumstances, are variable depending upon the specifics of your emergency department visit. If you don't have a primary care physician on staff, we will provide you with a referral. We always advise you to contact your personal physician following an emergency department visit to inform them of the circumstance of the visit and for follow-up with them and/or the need for any referrals to a consulting specialist. The emergency department will also refer you to a specialist when appropriate. This referral assures that you have the opportunity for followup care with a specialist. All of these measure are taken in an effort to provide you with optimal care, which includes your followup. Under all circumstances we always encourage you to contact your private physician who remains a resource for coordinating your care. When calling for followup care, please make the office aware that this follow-up is from your recent emergency room visit. If for any reason you are refused follow-up, please contact the [facility] emergency department at and ask to speak to the emergency department charge nurse. [facility] Primary care- Internal Medicine and Family [address] [address] Please contact your provider in the clinic on Tuesday morning to discuss changing her medication and do not take the lisinopril/hydrochlorothiazide. Take [id number] Benadryl 50 mg every 6 hours for the next 24-36 hours and take the prednisone you have been prescribed starting tomorrow as he received a dose here in the ED. Please do all instructions given to you from your earlier ED visit for the laceration and return to ER as needed and as discussed. The swelling will slowly improve over the next 6-12 hours. - My Orders Last 24 Hours: My Active Orders 06/23/18 23:28 diphenhydrAMINE [Benadryl] 50 mg IM ONETIME ONE predniSONE 20 mg PO ONETIME ONE - Assessment/Plan Last 24 Hours: My Active Orders 06/23/18 23:28 diphenhydrAMINE [Benadryl] 50 mg IM ONETIME ONE predniSONE 20 mg PO ONETIME ONE
[2018-06-23 23:47] VITALS: BP 117/65
== END 2018-06-23 23:45 | disposition home or self-care (01) ==
LOC: MW.ED 23:04
DX: T78.3XXA Angioneurotic edema, initial encounter (principal); T46.4X5A Adverse effect of angiotensin-converting-enzyme inhibitors, initial encounter; Z79.82 Long term (current) use of aspirin; Z79.899 Other long term (current) drug therapy; Z88.8 Allergy status to other drugs, medicaments and biological substances; Z91.09 Other allergy status, other than to drugs and biological substances
CPT/HCPCS: 96372; 99283; A9270; J1200

== ENCOUNTER 2018-07-06 09:09 | Emergency (ER) | payer BC ==
[2018-07-06 09:25] VITALS: BP 132/66
== END 2018-07-06 09:26 | disposition left against medical advice (07) ==
LOC: MW.ED 09:09
DX: Z53.21 Procedure and treatment not carried out due to patient leaving prior to being seen by health care provider (principal)

== ENCOUNTER 2019-05-18 22:12 | Emergency (ER) | payer BC ==
--- NOTE | 2019-05-18 22:40 | EDM.PDOC ---
ED HPI GENERAL MEDICAL PROBLEM - General Chief Complaint: ENT Problem Stated Complaint: CHILLS/SORE THROAT Time Seen by Provider: 05/18/19 22:35 Source of Information: Reports: Patient History Limitations: Reports: No Limitations - History of Present Illness INITIAL COMMENTS - FREE TEXT/NARRATIVE: This 58-year-old gentleman presents emergency room with a sore throat. Patient states his presented last week with strep. Onset: Today Duration: Day(s): Location: Reports: Head Quality: Reports: Ache Severity: Mild Improves with: Reports: None Worsens with: Reports: None Associated Symptoms: Reports: No Other Symptoms Treatments [employer]: Reports: Acetaminophen Throat Pain Score (Numeric/FACES): 6 - Related Data Allergies Allergy/AdvReac Type Severity Reaction Status Date / Time hydrochlorothiazide Allergy Swelling Verified 05/18/19 22:27 lisinopril Allergy Swelling Verified 05/18/19 22:27 marijuana Allergy Hives Verified 05/18/19 22:27 Home Meds: Home Meds Aspirin 325 mg PO ASDIRECTED 06/23/18 [History] Celecoxib 200 mg PO DAILY 05/18/19 [History] Losartan/Hydrochlorothiazide [Losartan-HCTZ 50-12.5 MG] 1 tab PO DAILY 05/18/19 [History] Warfarin Sodium 5 mg PO DAILY 05/18/19 [History] Past Medical History - Past Health History Medical/Surgical History: Denies Medical/Surgical History HEENT History: Reports: None Cardiovascular History: Reports: Blood Clots/VTE/DVT Other Cardiovascular History: 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 Genitourinary History: Reports: None Musculoskeletal History: Reports: Fracture, RA Other Musculoskeletal History: fx right foot Neurological History: Reports: None Psychiatric History: Reports: None Endocrine/Metabolic History: Reports: Obesity/BMI 30+ Hematologic History: Reports: Other (See Below) Other Hematologic History: easy bruising/bleeding Immunologic History: Reports: None Oncologic (Cancer) History: Reports: None Dermatologic History: Reports: Other (See Below) Other Dermatologic History: hx ulcer on right leg - Infectious Disease History Infectious Disease History: Reports: Chicken Pox - Past Surgical History Head Surgeries/Procedures: Reports: None HEENT Surgical History: Reports: Tonsillectomy GI Surgical History: Reports: Colon, Colonoscopy, Colostomy, Hernia, Abdominal, Other (See Below) Other GI Surgeries/Procedures: hx incisional hernia repair Male Surgical History: Reports: None Neurological Surgical History: Reports: None Oncologic Surgical History: Reports: None Social & Family History - Family History Family Medical History: Noncontributory - Tobacco Use Used Tobacco, but Quit: Yes Month/Year Tobacco Last Used: 2009 - Caffeine Use Caffeine Use: Reports: Coffee Caffeine Use Comment: "alot" - Recreational Drug Use Recreational Drug Use: No ED ROS ENT - Review of Systems Review Of Systems: See Below Constitutional: Reports: No Symptoms, Fever HEENT: Reports: No Symptoms, Throat Pain Respiratory: Reports: No Symptoms Cardiovascular: Reports: No Symptoms Endocrine: Reports: No Symptoms GI/Abdominal: Reports: No Symptoms : Reports: No Symptoms Musculoskeletal: Reports: No Symptoms Skin: Reports: No Symptoms Neurological: Reports: No Symptoms Psychiatric: Reports: No Symptoms Hematologic/Lymphatic: Reports: No Symptoms Immunologic: Reports: No Symptoms ED EXAM, ENT - Physical Exam Exam: See Below Exam Limited By: No Limitations General Appearance: Alert, WD/WN, No Apparent Distress Ears: Normal External Exam, Normal Canal Nose: Normal Inspection Mouth/Throat: Normal Inspection Head: Atraumatic, Normocephalic Neck: Normal Inspection Cardiovascular: Normal Peripheral Pulses GI/Abdominal: Normal Bowel Sounds Psychiatric: Normal Affect Skin: Warm Course - Vital Signs Text/Narrative:: This 58-year-old male presents the emergency room chief complaint of sore throat. Patient states his was positive for strep. He is concerned. Patient's strep culture is positive patient will be treated for strep pharyngitis. Last Recorded V/S: Last Vital Signs Temp 96.6 F L 05/18/19 22:20 Pulse 70 05/18/19 22:20 Resp 22 H 05/18/19 22:20 BP 129/75 05/18/19 22:20 Pulse Ox 97 05/18/19 22:20 - Orders/Labs/Meds Orders: Active Orders 24 hr Category Date Time Status Amoxicillin [Amoxil] Med 05/18/19 22:51 Once 500 mg PO ONETIME ONE Departure - Departure Time of Disposition: 22:53 Disposition: Home, Self-Care 01 Condition: Good Clinical Impression: Strep pharyngitis - Discharge Information Referrals: Arturo Brizuela MD [Primary Care Provider] - Forms: ED Department Discharge Sepsis Event Note - Evaluation Sepsis Screening Result: Possible Sepsis Risk - Focused Exam Vital Signs: Vital Signs Temp Pulse Resp BP Pulse Ox 05/18/19 22:20 96.6 F L 70 22 H 129/75 97 Date Exam was Performed: 05/18/19 Time Exam was Performed: 22:52 - My Orders Last 24 Hours: My Active Orders 05/18/19 22:51 Amoxicillin [Amoxil] 500 mg PO ONETIME ONE - Assessment/Plan Last 24 Hours: My Active Orders 05/18/19 22:51 Amoxicillin [Amoxil] 500 mg PO ONETIME ONE
[2019-05-18] MEDS ORDERED: Amoxicillin 500 MG Cap PO ONE (22:51)
[2019-05-18 23:13] VITALS: BP 135/80; PULSE 57
== END 2019-05-18 23:16 | disposition home or self-care (01) ==
LOC: MW.ED 22:12
DX: J02.0 Streptococcal pharyngitis (principal); E66.9 Obesity, unspecified; Z68.42 Body mass index [BMI] 45.0-49.9, adult; Z87.891 Personal history of nicotine dependence; Z79.01 Long term (current) use of anticoagulants; Z79.82 Long term (current) use of aspirin; Z88.8 Allergy status to other drugs, medicaments and biological substances
CPT/HCPCS: 87880-QW; 99283; A9270-GY

== ENCOUNTER 2019-06-11 21:38 | Emergency (ER) | payer BC ==
--- NOTE | 2019-06-11 22:42 | EDM.PDOC ---
ED HPI GENERAL MEDICAL PROBLEM - General Chief Complaint: ENT Problem Stated Complaint: HARD TIME BREATHING,THROAT SORE,CHILLS Time Seen by Provider: 06/11/19 21:40 Source of Information: Reports: Patient History Limitations: Reports: No Limitations - History of Present Illness INITIAL COMMENTS - FREE TEXT/NARRATIVE: HISTORY OF PRESENT ILLNESS: Patient is a 58-year-old male who reports 1 day history of sore throat and chills. No fever at home. Denies any body aches. No loss of smell or taste. Denies any cough or difficulty breathing. States throat is painful but he is able to swallow. Denies any rash. Denies any known contact with strep. Patient did have strep 1 month ago which was treated and had resolved completely. No other abdominal pain, vomiting diarrhea. No urinary symptoms. No chest pain or dyspnea. Has otherwise been in normal state of health. REVIEW OF SYSTEMS: Other than the symptoms associated with the present events, the following is reported with regard to recent health: General: (-) fever. HENT: (-) congestion. Respiratory: (-) cough. Cardiovascular: (-) chest pain. GI: (-) abdominal pain. : (-) urinary complaints. Musculoskeletal: (-) other aches or pains. Endocrine: (-) generalized weakness. Neurological: (-) localized weakness. Skin: (-) rash PAST MEDICAL HISTORY: reviewed as per nursing notes SOCIAL HISTORY: reviewed as per nursing notes, MEDICATIONS: Per nurse's note ALLERGIES: Per nurse's note, reviewed by me PHYSICAL EXAMINATION: GENERALIZED APPEARANCE: well developed, well nourished in no distress VITAL SIGNS: Per nurse's note, reviewed by me SKIN: Warm, dry; (-) cyanosis; (-) rash. HEAD: (-) scalp swelling, (-) tenderness. EYES: (-) conjunctival pallor, (-) scleral icterus. ENMT: (-) stridor; mucous membranes moist. pharyngeal erythema. no exudate. uvula midline. no phonation changes. no trismus. NECK: (-) tenderness, (-) stiffness, CHEST AND RESPIRATORY: (-) rales, (-) rhonchi, (-) wheezes; breath sounds equal bilaterally. HEART AND CARDIOVASCULAR: (-) irregularity; (-) murmur, (-) gallop. ABDOMEN AND GI: Soft; (-) tenderness, (-) guarding, (-) rebound, (-) palpable masses, EXTREMITIES: (-) deformity, (-) edema. NEURO AND PSYCH: Alert. Cranial nerves grossly intact; strength symmetric. gait steady DIAGNOSTICS: strep: neg EMERGENCY DEPARTMENT COURSE AND TREATMENT: Patient's condition remained stable during Emergency Department evaluation. Based on history, physical exam, and diagnostic evaluation, the patient has symptoms consistent with acute pharyngitis. There is no obvious swelling of the peritonsillar area or abscess. The airway appears patent and respiratory pattern is normal. The patient has no trismus and is tolerating oral food and fluid. I felt that outpatient management with close followup by the patient's primary care provider in 1-2 days was appropriate. The patient's questions were answered, and discharge precautions and reasons to return to the clinic were discussed. The patient understands to return to the ED if symptoms do not improve as discussed, or if symptoms worsen. PLAN AND FOLLOW-UP: Patient received written and verbal instructions regarding this condition. Return to ED immediately with any new or worsening symptoms. Follow up to be arranged by patient with pcp in 1-2 days for further evaluation. Given discharge precautions. Patient expressed verbal understanding. Throat Pain Score (Numeric/FACES): 0 - Related Data Allergies Allergy/AdvReac Type Severity Reaction Status Date / Time hydrochlorothiazide Allergy Swelling Verified 06/11/19 22:24 lidocaine Allergy Facial Verified 06/11/19 22:26 Swelling lisinopril Allergy Swelling Verified 06/11/19 22:24 marijuana Allergy Hives Verified 06/11/19 22:24 Home Meds: Home Meds Aspirin 325 mg PO ASDIRECTED 06/23/18 [History] Losartan/Hydrochlorothiazide [Losartan-HCTZ 50-12.5 MG] 1 tab PO DAILY 05/18/19 [History] Warfarin Sodium 5 mg PO DAILY 05/18/19 [History] Past Medical History - Past Health History Medical/Surgical History: Denies Medical/Surgical History HEENT History: Reports: None Cardiovascular History: Reports: Blood Clots/VTE/DVT Other Cardiovascular History: 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 Genitourinary History: Reports: None Musculoskeletal History: Reports: Fracture, RA Other Musculoskeletal History: fx right foot Neurological History: Reports: None Psychiatric History: Reports: None Endocrine/Metabolic History: Reports: Obesity/BMI 30+ Hematologic History: Reports: Other (See Below) Other Hematologic History: easy bruising/bleeding Immunologic History: Reports: None Oncologic (Cancer) History: Reports: None Dermatologic History: Reports: Other (See Below) Other Dermatologic History: hx ulcer on right leg - Infectious Disease History Infectious Disease History: Reports: Chicken Pox - Past Surgical History Head Surgeries/Procedures: Reports: None HEENT Surgical History: Reports: Tonsillectomy GI Surgical History: Reports: Colon, Colonoscopy, Colostomy, Hernia, Abdominal, Other (See Below) Other GI Surgeries/Procedures: hx incisional hernia repair Male Surgical History: Reports: None Neurological Surgical History: Reports: None Oncologic Surgical History: Reports: None Social & Family History - Family History Family Medical History: Noncontributory - Caffeine Use Caffeine Use: Reports: Coffee Caffeine Use Comment: "alot" ED ROS ENT - Review of Systems Review Of Systems: See Below (see dictation) ED EXAM, ENT - Physical Exam Exam: See Below (see dictation) Course - Vital Signs Last Recorded V/S: Last Vital Signs Temp 97.1 F 06/11/19 22:26 Pulse 68 06/11/19 22:26 Resp 18 06/11/19 22:26 BP 137/65 06/11/19 22:26 Pulse Ox 94 L 06/11/19 22:26 - Orders/Labs/Meds Orders: Active Orders 24 hr Category Date Time Status CULTURE STREP A CONFIRMATION [RM] Stat Lab 06/11/19 22:29 Results STREP SCRN A RAPID W CULT CONF [RM] Stat Lab 06/11/19 22:29 Results Departure - Departure Time of Disposition: 22:46 Disposition: Home, Self-Care 01 Condition: Good Clinical Impression: Pharyngitis - Discharge Information *PRESCRIPTION DRUG MONITORING PROGRAM REVIEWED*: Not Applicable *COPY OF PRESCRIPTION DRUG MONITORING REPORT IN PATIENT SUNSHINE: Not Applicable Instructions: Pharyngitis, [id number] Referrals: Arturo Brizuela MD [Primary Care Provider] - Forms: ED Department Discharge Additional Instructions: The following information is given to patients seen in the emergency department who are being discharged to home. This information is to outline your options for follow-up care. We provide all patients seen in our emergency department with a follow-up referral. The need for follow-up, as well as the timing and circumstances, are variable depending upon the specifics of your emergency department visit. If you don't have a primary care physician on staff, we will provide you with a referral. We always advise you to contact your personal physician following an emergency department visit to inform them of the circumstance of the visit and for follow-up with them and/or the need for any referrals to a consulting specialist. The emergency department will also refer you to a specialist when appropriate. This referral assures that you have the opportunity for follow-up care with a specialist. All of these measure are taken in an effort to provide you with optimal care, which includes your follow-up. Under all circumstances we always encourage you to contact your private physician who remains a resource for coordinating your care. When calling for follow-up care, please make the office aware that this follow-up is from your recent emergency room visit. If for any reason you are refused follow-up, please contact the [facility] Emergency Department at and asked to speak to the emergency department charge nurse. Sepsis Event Note - Focused Exam Vital Signs: Vital Signs Temp Pulse Resp BP Pulse Ox 06/11/19 22:26 97.1 F 68 18 137/65 94 L Date Exam was Performed: 06/11/19 Time Exam was Performed: 22:49 - My Orders Last 24 Hours: My Active Orders 06/11/19 22:29 CULTURE STREP A CONFIRMATION [RM] Stat STREP SCRN A RAPID W CULT CONF [RM] Stat - Assessment/Plan Last 24 Hours: My Active Orders 06/11/19 22:29 CULTURE STREP A CONFIRMATION [RM] Stat STREP SCRN A RAPID W CULT CONF [RM] Stat
[2019-06-11 23:00] VITALS: BP 152/62; PULSE 58
== END 2019-06-11 22:59 | disposition home or self-care (01) ==
LOC: MW.ED 21:38
DX: J02.9 Acute pharyngitis, unspecified (principal); E66.9 Obesity, unspecified; Z68.42 Body mass index [BMI] 45.0-49.9, adult; Z88.8 Allergy status to other drugs, medicaments and biological substances; Z88.6 Allergy status to analgesic agent; Z88.5 Allergy status to narcotic agent; Z79.01 Long term (current) use of anticoagulants; Z79.899 Other long term (current) drug therapy
CPT/HCPCS: 87081; 87880-QW; 99282; 99283

== ENCOUNTER 2020-11-16 10:23 | Emergency (ER) | payer BC ==
[2020-11-16] MEDS ORDERED: Clindamycin Phosphate in D5W 600 MG in Premix Bag 1 BAG IV ONE ×2 (11:00)
--- NOTE | 2020-11-16 11:03 | EDM.PDOC ---
ED HPI GENERAL MEDICAL PROBLEM - General Chief Complaint: Lower Extremity Injury/Pain Stated Complaint: RIGHT LEG PAIN Time Seen by Provider: 11/16/20 10:26 Source of Information: Reports: Patient History Limitations: Reports: No Limitations - History of Present Illness INITIAL COMMENTS - FREE TEXT/NARRATIVE: 59-year-old male past medical history DVT on warfarin, hypertension, hyperlipidemia, chronic right lower extremity ulcerations presents for swelling to right lower extremity. Patient notes that he goes to wound care. Has not been on antibiotics recently. Over the last 2 days has noted worsening swelling of the right lower extremity. It is not painful. No fevers or systemic symptoms noted. right leg Pain Score (Numeric/FACES): 2 - Related Data Allergies Allergy/AdvReac Type Severity Reaction Status Date / Time hydrochlorothiazide Allergy Swelling Verified 11/16/20 10:59 lidocaine Allergy Facial Verified 11/16/20 10:59 Swelling lisinopril Allergy Swelling Verified 11/16/20 10:59 marijuana Allergy Hives Verified 11/16/20 10:59 Home Meds: Home Meds Aspirin 325 mg PO ASDIRECTED 06/23/18 [History] Losartan/Hydrochlorothiazide [Losartan-HCTZ 50-12.5 MG] 1 tab PO DAILY 05/18/19 [History] Warfarin Sodium 5 mg PO DAILY 05/18/19 [History] Past Medical History - Past Health History Medical/Surgical History: Denies Medical/Surgical History HEENT History: Reports: None Cardiovascular History: Reports: Blood Clots/VTE/DVT Other Cardiovascular History: 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 Genitourinary History: Reports: None Musculoskeletal History: Reports: Fracture, RA Other Musculoskeletal History: fx right foot Neurological History: Reports: None Psychiatric History: Reports: None Endocrine/Metabolic History: Reports: Obesity/BMI 30+ Hematologic History: Reports: Other (See Below) Other Hematologic History: easy bruising/bleeding Immunologic History: Reports: None Oncologic (Cancer) History: Reports: None Dermatologic History: Reports: Other (See Below) Other Dermatologic History: hx ulcer on right leg - Infectious Disease History Infectious Disease History: Reports: Chicken Pox - Past Surgical History Head Surgeries/Procedures: Reports: None HEENT Surgical History: Reports: Tonsillectomy Cardiovascular Surgical History: Reports: None Respiratory Surgical History: Reports: None GI Surgical History: Reports: Colon, Colonoscopy, Colostomy, Hernia, Abdominal, Other (See Below) Other GI Surgeries/Procedures: hx incisional hernia repair Male Surgical History: Reports: None Endocrine Surgical History: Reports: None Neurological Surgical History: Reports: None Musculoskeletal Surgical History: Reports: None Oncologic Surgical History: Reports: None Dermatological Surgical History: Reports: None Social & Family History - Family History Family Medical History: No Pertinent Family History - Caffeine Use Caffeine Use: Reports: Coffee Caffeine Use Comment: "alot" Review of Systems - Review of Systems Review Of Systems: Comprehensive ROS is negative, except as noted in HPI. ED EXAM, GENERAL - Physical Exam Exam: See Below Exam Limited By: No Limitations General Appearance: Alert, WD/WN, No Apparent Distress Ears: Hearing Grossly Normal Throat/Mouth: Normal Voice, No Airway Compromise Head: Atraumatic, Normocephalic Neck: Normal Inspection Respiratory/Chest: No Respiratory Distress, Lungs Clear, Normal Breath Sounds, No Accessory Muscle Use Cardiovascular: Normal Peripheral Pulses, Regular Rate, Rhythm Extremities: Other (RLE with two shallow ulcerations; leg from knee down is erythematous, swollen, warm. No TTP) Neurological: Alert, Normal Gait Psychiatric: Normal Affect, Normal Mood Skin Exam: Warm, Dry, Intact, Normal Color Course - Vital Signs Last Recorded V/S: Last Vital Signs Temp 97.0 F 11/16/20 11:00 Pulse 60 11/16/20 11:00 Resp 18 11/16/20 11:00 BP 145/71 H 11/16/20 11:00 Pulse Ox 97 11/16/20 11:00 - Orders/Labs/Meds Orders: Active Orders 24 hr Category Date Time Status Saline Lock Insert [OM.PC] Stat Oth 11/16/20 11:00 Ordered Labs: Laboratory Tests 11/16/20 11/16/20 11/16/20 Range/Units 11:27 11:27 11:27 WBC 8.22 (4.0-11.0) K/uL RBC 4.45 L (4.50-5.90) M/uL Hgb 14.2 (13.0-17.0) g/dL Hct 41.7 (38.0-50.0) % MCV 93.7 (80.0-98.0) fL MCH 31.9 (27.0-32.0) pg MCHC 34.1 (31.0-37.0) g/dL RDW Std Deviation 47.6 (28.0-62.0) fl RDW Coeff of Sandee 14 (11.0-15.0) % Plt Count 214 (150-400) K/uL MPV 9.60 (7.40-12.00) fL Neut % (Auto) 68.1 (48.0-80.0) % Lymph % (Auto) 19.5 (16.0-40.0) % [place] % (Auto) 10.7 (0.0-15.0) % Eos % (Auto) 1.3 (0.0-7.0) % Baso % (Auto) 0.4 (0.0-1.5) % Neut # (Auto) 5.6 (1.4-5.7) K/uL Lymph # (Auto) 1.6 (0.6-2.4) K/uL [place] # (Auto) 0.9 H (0.0-0.8) K/uL Eos # (Auto) 0.1 (0.0-0.7) K/uL Baso # (Auto) 0.0 (0.0-0.1) K/uL Nucleated RBC % 0.0 /100WBC Nucleated RBCs # 0 K/uL INR 1.67 Sodium 140 (136-148) mmol/L Potassium 4.0 (3.5-5.1) mmol/L Chloride 103 (98-107) mmol/L Carbon Dioxide 29.2 (21.0-32.0) mmol/L BUN 32 H (7.0-18.0) mg/dL Creatinine 1.0 (0.8-1.3) mg/dL Est Cr Clr Drug Dosing TNP Estimated GFR (MDRD) > 60.0 ml/min Glucose 102 (74-106) mg/dL Calcium 8.5 (8.5-10.1) mg/dL Total Bilirubin 0.5 (0.2-1.0) mg/dL AST 25 (15-37) IU/L ALT 28 (14-63) IU/L Alkaline Phosphatase 113 (46-116) U/L C-Reactive Protein 1.30 H (0.00-0.90) mg/dL Total Protein 7.9 (6.4-8.2) g/dL Albumin 3.4 (3.4-5.0) g/dL Globulin 4.5 H (2.6-4.0) g/dL Albumin/Globulin Ratio 0.8 L (0.9-1.6) Meds: Medications Discontinued Medications Generic Name Dose Route Start Last Admin Trade Name Hubertq PRN Reason Stop Dose Admin Clindamycin Phosphate 600 mg/ 50 mls @ 100 mls/hr 11/16/20 11:00 11/16/20 11:16 Premix IV 11/16/20 11:29 100 mls/hr ONETIME ONE Administration Warfarin Sodium 2.5 mg 11/16/20 11:56 11/16/20 12:24 Warfarin 2.5 Mg Tab PO 11/16/20 11:57 2.5 mg ONETIME ONE Administration - Re-Assessments/Exams Free Text/Narrative Re-Assessment/Exam: 11/16/20 11:02 Patient symptoms most consistent with cellulitis. Possible DVT, however, this is lower on the differential considering patient is already anticoagulated on warfarin. 11/16/20 12:56 Recommend patient recheck to his primary care physician to get ultrasound of the right lower extremity either tomorrow or the next day to rule out DVT. He is already anticoagulated. He will need more frequent INR checks which was communicated with the patient since he was subtherapeutic. Will treat for cellulitis. Patient has not been on antibiotics recently so it is reasonable to trial outpatient antibiotics. Return precautions were discussed with patient at length. Departure - Departure Time of Disposition: 12:56 Disposition: Home, Self-Care 01 Condition: Good Clinical Impression: Cellulitis Qualifiers: Site of cellulitis: extremity Site of cellulitis of extremity: lower extremity Laterality: right Qualified Code(s): L03.115 - Cellulitis of right lower limb - Discharge Information Instructions: Cellulitis, Adult Referrals: Arturo Brizuela MD [Primary Care Provider] - Forms: ED Department Discharge Additional Instructions: Please discuss with Dr. Brizuela the ultrasound of the right lower extremity. If you are unable to get an ultrasound through Dr. Brizuela then I would recommend coming back to the emergency department for an ultrasound to rule out DVT. You were given an antibiotic to treat for cellulitis of your leg. If symptoms are not improving after 2 days or if you develop fever or vomiting she come back to the emergency department immediately. Sometimes these infections do not respond well to oral antibiotics and you have to stay in the hospital for IV antibiotics . The following information is given to patients seen in the emergency department who are being discharged to home. This information is to outline your options for follow-up care. We provide all patients seen in our emergency department with a follow-up referral. The need for follow-up, as well as the timing and circumstances, are variable depending upon the specifics of your emergency department visit. If you don't have a primary care physician on staff, we will provide you with a referral. We always advise you to contact your personal physician following an emergency department visit to inform them of the circumstance of the visit and for follow-up with them and/or the need for any referrals to a consulting specialist. The emergency department will also refer you to a specialist when appropriate. This referral assures that you have the opportunity for follow-up care with a specialist. All of these measure are taken in an effort to provide you with optimal care, which includes your follow-up. Under all circumstances we always encourage you to contact your private physician who remains a resource for coordinating your care. When calling for follow-up care, please make the office aware that this follow-up is from your recent emergency room visit. If for any reason you are refused follow-up, please contact the [facility] Emergency Department at and asked to speak to the emergency department charge nurse. Please follow up with your primary care physician. If you do not have a primary care physician, see below: [facility] [address] [place] [id number] [facility] [address] [place] [address] [facility] [address] [place] [address] Sepsis Event Note (ED) - Focused Exam Vital Signs: Vital Signs Temp Pulse Resp BP Pulse Ox 11/16/20 11:00 97.0 F 60 18 145/71 H 97 - My Orders Last 24 Hours: My Active Orders 11/16/20 11:00 Saline Lock Insert [OM.PC] Stat - Assessment/Plan Last 24 Hours: My Active Orders 11/16/20 11:00 Saline Lock Insert [OM.PC] Stat
--- NOTE | 2020-11-16 11:45 | CR ---
HISTORY: Cellulitis. Evaluate for soft tissue gas. TECHNIQUE: Two views of the right lower leg. COMPARISON: No prior. FINDINGS: No acute right tibial or fibular fracture. No bony destructive change to suggest acute osteomyelitis radiographically. No radiopaque foreign body or soft tissue gas. Degenerative changes of the right knee and right ankle. Small plantar calcaneal spur. Spurring at the Achilles tendon attachment to the calcaneus along with some ossification within the distal-most Achilles tendon. There are some soft tissue calcifications present. IMPRESSION: 1. No soft tissue gas. 2. No bony destructive change to suggest acute osteomyelitis radiographically. Dictated by Ruiz Gray MD @ 11/16/2020 11:43:16 AM (Electronically Signed)
[2020-11-16] MEDS ORDERED: Warfarin 2.5 MG Tab PO ONE (11:56)
[2020-11-16 12:04] LABS: BLOOD UREA NITROGEN,BUN 32 mg/dL (7.0-18.0); CARBON DIOXIDE,CO2 29.2 mmol/L (21.0-32.0); CHLORIDE,CL 103 mmol/L (98-107); GLUCOSE RANDOM 102 mg/dL (74-106); SODIUM,NA 140 mmol/L (136-148)
[2020-11-16 13:21] VITALS: BP 113/79; PULSE 55
== END 2020-11-16 13:23 | disposition home or self-care (01) ==
LOC: MW.ED 10:23
DX: L03.115 Cellulitis of right lower limb (principal); Z88.8 Allergy status to other drugs, medicaments and biological substances; Z79.899 Other long term (current) drug therapy
CPT/HCPCS: 36415; 73590; 80053; 85025; 85610; 86140; 96365; 99283; A9270; J3490

== ENCOUNTER 2020-12-29 10:51 | Emergency (ER) | payer BC ==
--- NOTE | 2020-12-29 11:21 | EDM.PDOC ---
ED HPI GENERAL MEDICAL PROBLEM - General Chief Complaint: Lower Extremity Injury/Pain Stated Complaint: INFECTION IN RT LOWER LEG Time Seen by Provider: 12/29/20 10:54 Source of Information: Reports: Patient History Limitations: Reports: No Limitations - History of Present Illness INITIAL COMMENTS - FREE TEXT/NARRATIVE: The patient is a 60-year-old male presents today for right lower extremity swelling. He states that he has ulcers and also cellulitis of the right lower extremities was placed on antibiotics. The redness cleared up but he knows that he has some swelling to the right lower leg if he was at the INR clinic to get his INR checked and decided to come get evaluated. He denies any pain to the legs any injuries to the legs any shortness of breath fever chills nausea vomiting or other complaints. - Related Data Allergies Allergy/AdvReac Type Severity Reaction Status Date / Time hydrochlorothiazide Allergy Swelling Verified 12/29/20 11:10 lidocaine Allergy Facial Verified 12/29/20 11:10 Swelling lisinopril Allergy Swelling Verified 12/29/20 11:10 marijuana Allergy Hives Verified 12/29/20 11:10 Home Meds: Home Meds Aspirin 325 mg PO ASDIRECTED 06/23/18 [History] Losartan/Hydrochlorothiazide [Losartan-HCTZ 50-12.5 MG] 1 tab PO DAILY 05/18/19 [History] Warfarin Sodium 5 mg PO DAILY 05/18/19 [History] Furosemide 20 mg PO DAILY 12/29/20 [History] Past Medical History - Past Health History Medical/Surgical History: Denies Medical/Surgical History HEENT History: Reports: None Cardiovascular History: Reports: Blood Clots/VTE/DVT Other Cardiovascular History: 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 Genitourinary History: Reports: None Musculoskeletal History: Reports: Fracture, RA Other Musculoskeletal History: fx right foot Neurological History: Reports: None Psychiatric History: Reports: None Endocrine/Metabolic History: Reports: Obesity/BMI 30+ Hematologic History: Reports: Other (See Below) Other Hematologic History: easy bruising/bleeding Immunologic History: Reports: None Oncologic (Cancer) History: Reports: None Dermatologic History: Reports: Other (See Below) Other Dermatologic History: hx ulcer on right leg - Infectious Disease History Infectious Disease History: Reports: Chicken Pox - Past Surgical History Head Surgeries/Procedures: Reports: None HEENT Surgical History: Reports: Tonsillectomy Cardiovascular Surgical History: Reports: None Respiratory Surgical History: Reports: None GI Surgical History: Reports: Colon, Colonoscopy, Colostomy, Hernia, Abdominal, Other (See Below) Other GI Surgeries/Procedures: hx incisional hernia repair Male Surgical History: Reports: None Endocrine Surgical History: Reports: None Neurological Surgical History: Reports: None Musculoskeletal Surgical History: Reports: None Oncologic Surgical History: Reports: None Dermatological Surgical History: Reports: None Social & Family History - Family History Family Medical History: No Pertinent Family History - Tobacco Use Tobacco Use Status *Q: Never Tobacco User Second Hand Smoke Exposure: No - Caffeine Use Caffeine Use: Reports: None Caffeine Use Comment: "alot" - Recreational Drug Use Recreational Drug Use: No Review of Systems - Review of Systems Review Of Systems: See Below Constitutional: Reports: No Symptoms Eyes: Reports: No Symptoms Ears: Reports: No Symptoms Nose: Reports: No Symptoms Mouth/Throat: Reports: No Symptoms Respiratory: Reports: No Symptoms Cardiovascular: Reports: No Symptoms GI/Abdominal: Reports: No Symptoms Genitourinary: Reports: No Symptoms Musculoskeletal: Reports: No Symptoms Skin: Reports: No Symptoms Neurological: Reports: No Symptoms Psychiatric: Reports: No Symptoms ED EXAM, GENERAL - Physical Exam Exam: See Below Exam Limited By: No Limitations General Appearance: Alert, WD/WN, No Apparent Distress Eye Exam: Bilateral Eye: EOMI, PERRL Ears: Normal External Exam Nose: Normal Inspection Throat/Mouth: Normal Inspection Head: Atraumatic Neck: Normal Inspection Respiratory/Chest: No Respiratory Distress Peripheral Pulses: 2+: Dorsalis Pedis (L), Dorsalis Pedis (R) Rectal (Males) Exam: Normal Exam Extremities: Other (Slight discoloration to the right leg which looks to be chronic from possible venous stasis. No noticeable ulcers to the right lower extremity. No noticeable edema as well.) Neurological: Alert, Oriented, Normal Cognition Course - Vital Signs Last Recorded V/S: Last Vital Signs Temp 97.1 F 12/29/20 13:42 Pulse 61 12/29/20 13:42 Resp 20 12/29/20 13:42 BP 129/72 12/29/20 13:42 Pulse Ox 98 12/29/20 13:42 - Orders/Labs/Meds Labs: Laboratory Tests 12/29/20 12/29/20 Range/Units 11:34 11:34 WBC 7.43 (4.0-11.0) K/uL RBC 4.15 L (4.50-5.90) M/uL Hgb 13.3 (13.0-17.0) g/dL Hct 39.2 (38.0-50.0) % MCV 94.5 (80.0-98.0) fL MCH 32.0 (27.0-32.0) pg MCHC 33.9 (31.0-37.0) g/dL RDW Std Deviation 48.0 (28.0-62.0) fl RDW Coeff of Sandee 14 (11.0-15.0) % Plt Count 198 (150-400) K/uL MPV 9.70 (7.40-12.00) fL Neut % (Auto) 61.4 (48.0-80.0) % Lymph % (Auto) 25.0 (16.0-40.0) % [place] % (Auto) 10.4 (0.0-15.0) % Eos % (Auto) 2.7 (0.0-7.0) % Baso % (Auto) 0.5 (0.0-1.5) % Neut # (Auto) 4.6 (1.4-5.7) K/uL Lymph # (Auto) 1.9 (0.6-2.4) K/uL [place] # (Auto) 0.8 (0.0-0.8) K/uL Eos # (Auto) 0.2 (0.0-0.7) K/uL Baso # (Auto) 0.0 (0.0-0.1) K/uL Nucleated RBC % 0.0 /100WBC Nucleated RBCs # 0 K/uL Sodium 139 (136-148) mmol/L Potassium 3.9 (3.5-5.1) mmol/L Chloride 102 (98-107) mmol/L Carbon Dioxide 29.0 (21.0-32.0) mmol/L BUN 31 H (7.0-18.0) mg/dL Creatinine 0.7 L (0.8-1.3) mg/dL Est Cr Clr Drug Dosing 128.41 mL/min Estimated GFR (MDRD) > 60.0 ml/min Glucose 85 (74-106) mg/dL Calcium 8.7 (8.5-10.1) mg/dL - Re-Assessments/Exams Free Text/Narrative Re-Assessment/Exam: 12/29/20 13:21 Patient DVT study is negative patient be discharged home to follow-up PMD. Departure - Departure Time of Disposition: 13:21 Disposition: Home, Self-Care 01 Condition: Good Clinical Impression: Leg edema, right - Discharge Information *PRESCRIPTION DRUG MONITORING PROGRAM REVIEWED*: Not Applicable *COPY OF PRESCRIPTION DRUG MONITORING REPORT IN PATIENT SUNSHINE: Not Applicable Instructions: Lymphedema Referrals: Arturo Brizuela MD [Primary Care Provider] - Forms: ED Department Discharge Additional Instructions: You were seen today for right leg swelling. We did a DVT study does not show any clots in the leg. You may have some lymphedema due to possible venous stasis and poor circulation to the leg we recommend continue to follow-up with your primary care physician a possible vascular surgeon if you have any other concerning signs or symptoms please read return to the ED. The following information is given to patients seen in the emergency department who are being discharged to home. This information is to outline your options for follow-up care. We provide all patients seen in our emergency department with a follow-up referral. The need for follow-up, as well as the timing and circumstances, are variable depending upon the specifics of your emergency department visit. If you don't have a primary care physician on staff, we will provide you with a referral. We always advise you to contact your personal physician following an emergency department visit to inform them of the circumstance of the visit and for follow-up with them and/or the need for any referrals to a consulting specialist. The emergency department will also refer you to a specialist when appropriate. This referral assures that you have the opportunity for follow-up care with a specialist. All of these measure are taken in an effort to provide you with optimal care, which includes your follow-up. Under all circumstances we always encourage you to contact your private physician who remains a resource for coordinating your care. When calling for follow-up care, please make the office aware that this follow-up is from your recent emergency room visit. If for any reason you are refused follow-up, please contact the [facility] Emergency Department at and asked to speak to the emergency department charge nurse. Please follow up with your primary care physician. If you do not have a primary care physician, see below: [facility] [address] [place] [id number] [facility] [address] [place] [address] Sepsis Event Note (ED) - Evaluation Sepsis Screening Result: No Definite Risk - Focused Exam Vital Signs: Vital Signs Temp Pulse Resp BP Pulse Ox 12/29/20 13:42 97.1 F 61 20 129/72 98 12/29/20 11:12 96.9 F 52 L 20 129/71 94 L - Assessment/Plan Plan: Patient is a 60-year-old male presents today for right lower extremity swelling. We will obtain a DVT study to rule out any clots patient had an INR done earlier today which is 2.4. Patient is currently on warfarin. Denies any shortness of breath or other complaints.
[2020-12-29 12:03] LABS: BLOOD UREA NITROGEN,BUN 31 mg/dL (7.0-18.0); CHLORIDE,CL 102 mmol/L (98-107); GLUCOSE RANDOM 85 mg/dL (74-106); POTASSIUM,K 3.9 mmol/L (3.5-5.1); SODIUM,NA 139 mmol/L (136-148)
--- NOTE | 2020-12-29 13:40 | US ---
INDICATION: RLE swelling, on Coumadin 2.4 prior 11/17/20 TECHNIQUE: Ultrasound venous duplex right lower extremity. COMPARISON: None. FINDINGS: The right common femoral, superficial femoral, deep femoral, popliteal, posterior tibial, and greater saphenous veins are fully compressible with normal waveforms. IMPRESSION: Normal ultrasound of the right lower extremity veins. Dictated by: Yung Del Rio MD @ 12/29/2020 13:39:34 (Electronically Signed)
[2020-12-29 14:17] VITALS: BP 135/70; PULSE 54
== END 2020-12-29 14:17 | disposition home or self-care (01) ==
LOC: MW.ED 10:51
DX: R60.0 Localized edema (principal); M06.9 Rheumatoid arthritis, unspecified; E66.9 Obesity, unspecified; Z68.41 Body mass index [BMI] 40.0-44.9, adult; Z86.718 Personal history of other venous thrombosis and embolism; Z88.8 Allergy status to other drugs, medicaments and biological substances; Z88.4 Allergy status to anesthetic agent; Z79.82 Long term (current) use of aspirin; Z79.01 Long term (current) use of anticoagulants; Z79.899 Other long term (current) drug therapy
CPT/HCPCS: 36415; 80048; 85025; 93971-26-RT; 93971-RT; 99284-25

== ENCOUNTER 2021-02-08 08:09 | Emergency (ER) | payer BC ==
--- NOTE | 2021-02-08 08:44 | EDM.PDOC ---
ED HPI GENERAL MEDICAL PROBLEM - General Chief Complaint: ENT Problem Stated Complaint: POSS PINK EYE IN L EYE, TERRIBLE CHILLS AND COUGH Time Seen by Provider: 02/08/21 08:18 Source of Information: Reports: Patient History Limitations: Reports: No Limitations - History of Present Illness INITIAL COMMENTS - FREE TEXT/NARRATIVE: Patient is a 60-year-old male presents today for left redness and drainage. States that his eyes been itching as well. Patient states no others in household having same symptoms. Denies any vision changes. Patient denies any other complaints currently. - Related Data Allergies Allergy/AdvReac Type Severity Reaction Status Date / Time hydrochlorothiazide Allergy Swelling Verified 02/08/21 08:19 lidocaine Allergy Facial Verified 02/08/21 08:19 Swelling lisinopril Allergy Swelling Verified 02/08/21 08:19 marijuana Allergy Hives Verified 02/08/21 08:19 Home Meds: Home Meds Aspirin 325 mg PO ASDIRECTED 06/23/18 [History] Losartan/Hydrochlorothiazide [Losartan-HCTZ 50-12.5 MG] 1 tab PO DAILY 05/18/19 [History] Warfarin Sodium 5 mg PO DAILY 05/18/19 [History] Furosemide 20 mg PO DAILY 12/29/20 [History] Past Medical History - Past Health History Medical/Surgical History: Denies Medical/Surgical History HEENT History: Reports: None Cardiovascular History: Reports: Blood Clots/VTE/DVT Other Cardiovascular History: 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 Genitourinary History: Reports: None Musculoskeletal History: Reports: Fracture, RA Other Musculoskeletal History: fx right foot Neurological History: Reports: None Psychiatric History: Reports: None Endocrine/Metabolic History: Reports: Obesity/BMI 30+ Hematologic History: Reports: Other (See Below) Other Hematologic History: easy bruising/bleeding Immunologic History: Reports: None Oncologic (Cancer) History: Reports: None Dermatologic History: Reports: Other (See Below) Other Dermatologic History: hx ulcer on right leg - Infectious Disease History Infectious Disease History: Reports: Chicken Pox - Past Surgical History Head Surgeries/Procedures: Reports: None HEENT Surgical History: Reports: Tonsillectomy Cardiovascular Surgical History: Reports: None Respiratory Surgical History: Reports: None GI Surgical History: Reports: Colon, Colonoscopy, Colostomy, Hernia, Abdominal, Other (See Below) Other GI Surgeries/Procedures: hx incisional hernia repair Male Surgical History: Reports: None Endocrine Surgical History: Reports: None Neurological Surgical History: Reports: None Musculoskeletal Surgical History: Reports: None Oncologic Surgical History: Reports: None Dermatological Surgical History: Reports: None Social & Family History - Family History Family Medical History: No Pertinent Family History - Tobacco Use Tobacco Use Status *Q: Former Tobacco User Used Tobacco, but Quit: Yes Month/Year Tobacco Last Used: 11 years - Caffeine Use Caffeine Use: Reports: None Caffeine Use Comment: "alot" - Recreational Drug Use Recreational Drug Use: No ED ROS ENT - Review of Systems Review Of Systems: See Below Constitutional: Reports: No Symptoms HEENT: Reports: Eye Discharge Respiratory: Reports: No Symptoms Endocrine: Reports: No Symptoms GI/Abdominal: Reports: No Symptoms : Reports: No Symptoms Musculoskeletal: Reports: No Symptoms Skin: Reports: No Symptoms Neurological: Reports: No Symptoms Psychiatric: Reports: No Symptoms Hematologic/Lymphatic: Reports: No Symptoms Immunologic: Reports: No Symptoms ED EXAM, ENT - Physical Exam Exam: See Below Exam Limited By: No Limitations General Appearance: Alert, WD/WN, No Apparent Distress Eye Exam: Left Eye: Conjunctival Injection, Bilateral Eye: EOMI, PERRL Nose: Normal Inspection Respiratory/Chest: No Respiratory Distress Neurological: Alert, Oriented, Normal Cognition, Normal Gait Course - Vital Signs Last Recorded V/S: Last Vital Signs Temp 96.6 F L 02/08/21 08:20 Pulse 65 02/08/21 08:20 Resp 17 02/08/21 08:20 BP 120/75 02/08/21 08:20 Pulse Ox 97 02/08/21 08:20 Departure - Departure Time of Disposition: 08:43 Disposition: Home, Self-Care 01 Condition: Good Clinical Impression: Bacterial conjunctivitis of left eye - Discharge Information *PRESCRIPTION DRUG MONITORING PROGRAM REVIEWED*: Not Applicable *COPY OF PRESCRIPTION DRUG MONITORING REPORT IN PATIENT SUNSHINE: Not Applicable Instructions: Bacterial Conjunctivitis, Adult, [id number] Additional Instructions: You are seen today for left eye redness and drainage you look to have a bacterial conjunctivitis. We have attached information on this diagnosis and things look for at home. If you have any other concerning signs or symptoms please free to return to the ED. The following information is given to patients seen in the emergency department who are being discharged to home. This information is to outline your options for follow-up care. We provide all patients seen in our emergency department wit h a follow-up referral. The need for follow-up, as well as the timing and circumstances, are variable depending upon the specifics of your emergency department visit. If you don't have a primary care physician on staff, we will provide you with a referral. We always advise you to contact your personal physician following an emergency department visit to inform them of the circumstance of the visit and for follow-up with them and/or the need for any referrals to a consulting specialist. The emergency department will also refer you to a specialist when appropriate. This referral assures that you have the opportunity for follow-up care with a specialist. All of these measure are taken in an effort to provide you with optimal care, which includes your follow-up. Under all circumstances we always encourage you to contact your private physician who remains a resource for coordinating your care. When calling for follow-up care, please make the office aware that this follow-up is from your recent emergency room visit. If for any reason you are refused follow-up, please contact the [facility] Emergency Department at and asked to speak to the emergency department charge nurse. Please follow up with your primary care physician. If you do not have a primary care physician, see below: [facility] [address] [place] [id number] [facility] [address] [place] [id number] Sepsis Event Note (ED) - Evaluation Sepsis Screening Result: No Definite Risk - Focused Exam Vital Signs: Vital Signs Temp Pulse Resp BP Pulse Ox 02/08/21 08:20 96.6 F L 65 17 120/75 97 - Assessment/Plan Plan: Patient is a 60-year-old male presents today for redness and drainage of the left eye. Looks to have a bacterial conjunctivitis will be placed on antibiotics and discharged home.
[2021-02-08 08:59] VITALS: BP 156/82; PULSE 67
== END 2021-02-08 09:01 | disposition home or self-care (01) ==
LOC: MW.ED 08:09
DX: H10.9 Unspecified conjunctivitis (principal); B96.89 Other specified bacterial agents as the cause of diseases classified elsewhere; E66.9 Obesity, unspecified; Z68.41 Body mass index [BMI] 40.0-44.9, adult; Z88.4 Allergy status to anesthetic agent; Z88.8 Allergy status to other drugs, medicaments and biological substances; Z79.82 Long term (current) use of aspirin; Z79.899 Other long term (current) drug therapy; Z79.01 Long term (current) use of anticoagulants; Z87.891 Personal history of nicotine dependence
CPT/HCPCS: 99282

== ENCOUNTER 2022-01-10 01:58 | Emergency (ER) | payer BC ==
[2022-01-10] MEDS ORDERED: Acetaminophen 325 MG Tab PO ONE (02:42)
[2022-01-10] MEDS ORDERED: Ibuprofen 400 MG Tab PO ONE (02:42)
[2022-01-10 02:58] LABS: CARBON DIOXIDE,CO2 28.9 mmol/L (21.0-32.0); POTASSIUM,K 3.9 mmol/L (3.5-5.1)
[2022-01-10 04:49] VITALS: BP 142/86; PULSE 67
== END 2022-01-10 04:49 | disposition home or self-care (01) ==
LOC: MW.ED 01:58
DX: R07.81 Pleurodynia (principal); E66.9 Obesity, unspecified; Z68.42 Body mass index [BMI] 45.0-49.9, adult; Z88.4 Allergy status to anesthetic agent; Z88.8 Allergy status to other drugs, medicaments and biological substances; Z79.82 Long term (current) use of aspirin; Z79.01 Long term (current) use of anticoagulants; W18.39XA Other fall on same level, initial encounter
CPT/HCPCS: 36415; 70450; 71045; 73080; 73610; 80053; 85025; 85610; 99284; A9270

== ENCOUNTER 2022-01-22 12:15 | Emergency (ER) | payer BC ==
[2022-01-22] MEDS ORDERED: Sodium Chloride 0.9% 10 ML Syringe FLUSH PRN (13:00)
[2022-01-22] MEDS ORDERED: Sodium Chloride 0.9% 2.5 ML Syringe FLUSH PRN (13:00)
[2022-01-22 14:00] LABS: CARBON DIOXIDE,CO2 28.9 mmol/L (21.0-32.0); POTASSIUM,K 3.8 mmol/L (3.5-5.1)
[2022-01-22] MEDS ORDERED: Clindamycin HCl 150 MG Cap PO ONE (14:19)
[2022-01-22 17:27] VITALS: BP 135/78; PULSE 86
== END 2022-01-22 17:25 | disposition home or self-care (01) ==
LOC: MW.ED 12:15
DX: L97.211 Non-pressure chronic ulcer of right calf limited to breakdown of skin (principal); L03.115 Cellulitis of right lower limb; E66.9 Obesity, unspecified; Z88.4 Allergy status to anesthetic agent; Z88.8 Allergy status to other drugs, medicaments and biological substances; Z68.42 Body mass index [BMI] 45.0-49.9, adult
CPT/HCPCS: 36415; 73590; 80053; 83605; 85025; 85610; 87040; 87070; 87075; 87077; 87186; 87205; 93971; 99284; A9270; J3490

== ENCOUNTER 2022-06-08 10:02 | Emergency (ER) | payer BC ==
[2022-06-08] MEDS ORDERED: Sodium Chloride 0.9% 1,000 ML IV ONE (10:58)
[2022-06-08] MEDS ORDERED: Clindamycin Phosphate in D5W 900 MG in Premix Bag 1 BAG IV ONE ×2 (10:58)
[2022-06-08 11:39] VITALS: PULSE 55
[2022-06-08 12:19] LABS: CARBON DIOXIDE,CO2 30.8 mmol/L (21.0-32.0); POTASSIUM,K 4.8 mmol/L (3.5-5.1)
[2022-06-08 12:48] VITALS: BP 131/74
== END 2022-06-08 12:45 | disposition home or self-care (01) ==
LOC: MW.ED 10:02
DX: L03.115 Cellulitis of right lower limb (principal); I48.91 Unspecified atrial fibrillation; I10 Essential (primary) hypertension; E78.5 Hyperlipidemia, unspecified; E11.9 Type 2 diabetes mellitus without complications; E66.9 Obesity, unspecified; Z68.42 Body mass index [BMI] 45.0-49.9, adult; Z79.01 Long term (current) use of anticoagulants; Z79.899 Other long term (current) drug therapy; Z88.4 Allergy status to anesthetic agent; Z88.8 Allergy status to other drugs, medicaments and biological substances; Z88.5 Allergy status to narcotic agent
CPT/HCPCS: 36415; 80053; 83605; 85025; 85610; 86140; 87040; 87070; 87075; 87205; 96365; 99283; J3490; J7030; 87077; 87186

== ENCOUNTER 2022-07-22 02:12 | Inpatient (IN) | payer BC ==
[2022-07-22 02:39] LABS: BASOPHILS PERCENT AUTO 0.2 % (0.0-1.5); EOSINOPHILS PERCENT AUTO 0.4 % (0.0-7.0); HEMOGLOBIN 12.5 g/dL (13.0-17.0); LYMPHOCYTES ABSOLUTE AUTO 0.4 K/uL (0.6-2.4); LYMPHOCYTES PERCENT AUTO 4.3 % (16.0-40.0); MEAN CORPUSCULAR HEMOGLOBIN 30.9 pg (27.0-32.0); MEAN CORPUSCULAR HGB CONC 32.9 g/dL (31.0-37.0); MEAN CORPUSCULAR VOLUME 94.1 fL (80.0-98.0); MONOCYTES ABSOLUTE AUTO 0.2 K/uL (0.0-0.8); MONOCYTES PERCENT AUTO 2.1 % (0.0-15.0); NEUTROPHILS ABSOLUTE AUTO 8.7 K/uL (1.4-5.7); NRBC ABSOLUTE 0 K/uL; PLATELET COUNT,PLT 146 K/uL (150-400); RED BLOOD CELL COUNT 4.04 M/uL (4.50-5.90); WHITE BLOOD CELL COUNT,WBC 9.38 K/uL (4.0-11.0)
[2022-07-22 02:40] LABS: BASE EXCESS VENOUS 3.7 (-2.0-3.0); PH,VENOUS 7.44 (7.31-7.41)
[2022-07-22 03:05] LABS: D-DIMER QUANTITATIVE 0.85 mg/L FEU (0.00-0.50); INR 3.76 (0.86-1.11); PTT,PARTIAL THROMBOPLSTIN TIME 46.5 SEC (23.9-30.7)
[2022-07-22 03:16] LABS: MAGNESIUM 1.6 mg/dL (1.8-2.4)
[2022-07-22 03:23] LABS: LACTIC ACID 2.5 mmol/L (0.4-2.0)
[2022-07-22] MEDS ORDERED: Piperacillin/Tazobactam 4.5 GM in Sodium Chloride 0.9% 100 ML IV ONE (03:26)
[2022-07-22] MEDS ORDERED: Sodium Chloride 0.9% 1,000 ML IV ONE (03:26)
[2022-07-22] MEDS ORDERED: Acetaminophen 500 MG Tab PO ONE (03:27)
[2022-07-22 04:12] LABS: A/G RATIO 0.7 (0.9-1.6); ALBUMIN 3.2 g/dL (3.4-5.0); BILIRUBIN TOTAL 0.5 mg/dL (0.2-1.0); CALCIUM 8.1 mg/dL (8.5-10.1); CARBON DIOXIDE,CO2 24.7 mmol/L (21.0-32.0); CREATININE 0.9 mg/dL (0.8-1.3); EST CRCL DRUG DOSING (CG) 95.8 mL/min; POTASSIUM,K 4.2 mmol/L (3.5-5.1); PROTEIN TOTAL,TP 7.8 g/dL (6.4-8.2)
[2022-07-22] MEDS ORDERED: Iopamidol 755 MG/ML 500 ML Multipack Bottle IVPUSH STA (04:37)
[2022-07-22] MEDS ORDERED: VANCOmycin 2 GM/400 ML 2 GM in Premix Bag 1 BAG IV ONE (05:00)
[2022-07-22 08:11] LABS: APPEARANCE,URINE CLEAR; BILIRUBIN,URINE NEGATIVE (NEGATIVE); COLOR,URINE YELLOW; GLUCOSE,URINE NEGATIVE (NEGATIVE); KETONES,URINE NEGATIVE (NEGATIVE); LEUKOCYTE ESTERASE,URINE MODERATE (NEGATIVE); NITRITE,URINE POSITIVE (NEGATIVE); OCCULT BLOOD,URINE LARGE (NEGATIVE); PROTEIN,URINE TRACE mg/dL (NEGATIVE); UROBILINOGEN,URINE 0.2 EU/dL (<2.0)
[2022-07-22 08:27] LABS: BACTERIA,URINE RARE (NEGATIVE); EPITHELIAL CELLS,URINE NOT SEEN (NONE-FEW); RBC,URINE 20-30 (0-2/HPF)
[2022-07-22] MEDS: ceFAZolin 2 GM in Sodium Chloride 0.9% 100 ML IV SCH ×2 (09:52→17:22)
[2022-07-22 10:27] LABS: HEMOGLOBIN A1C 5.4 %
[2022-07-22] MEDS ORDERED: HYDROmorphone 1 MG/ML Syringe IVPUSH PRN (11:27)
[2022-07-22] MEDS ORDERED: Temazepam 15 MG Cap PO PRN (11:27)
[2022-07-22] MEDS ORDERED: oxyCODONE 5 MG Tab PO PRN (11:27)
[2022-07-22] MEDS ORDERED: Ondansetron 4 MG Tab.DIS PO PRN (11:27)
[2022-07-22] MEDS ORDERED: Ondansetron 4 MG/2 ML SDV IVPUSH PRN (11:27)
[2022-07-22] MEDS ORDERED: Acetaminophen 325 MG Tab PO PRN (11:27)
[2022-07-22] MEDS ORDERED: Warfarin Sliding Scale PO SCH (14:00)
[2022-07-23] MEDS: ceFAZolin 2 GM in Sodium Chloride 0.9% 100 ML IV SCH ×2 (00:18→09:06)
[2022-07-23 05:50] LABS: BASOPHILS PERCENT AUTO 0.3 % (0.0-1.5); EOSINOPHILS ABSOLUTE AUTO 0.1 K/uL (0.0-0.7); HEMATOCRIT 35.2 % (38.0-50.0); HEMOGLOBIN 11.4 g/dL (13.0-17.0); LYMPHOCYTES PERCENT AUTO 12.8 % (16.0-40.0); MEAN CORPUSCULAR HEMOGLOBIN 30.6 pg (27.0-32.0); MEAN CORPUSCULAR HGB CONC 32.4 g/dL (31.0-37.0); MEAN CORPUSCULAR VOLUME 94.4 fL (80.0-98.0); MONOCYTES ABSOLUTE AUTO 0.7 K/uL (0.0-0.8); MONOCYTES PERCENT AUTO 9.1 % (0.0-15.0); NEUTROPHILS PERCENT AUTO 76.8 % (48.0-80.0); NRBC ABSOLUTE 0 K/uL; PLATELET COUNT,PLT 117 K/uL (150-400); RED BLOOD CELL COUNT 3.73 M/uL (4.50-5.90)
[2022-07-23 06:01] LABS: INR 2.6 (0.86-1.11)
[2022-07-23 06:28] LABS: CALCIUM 8.2 mg/dL (8.5-10.1); CARBON DIOXIDE,CO2 27.7 mmol/L (21.0-32.0); CREATININE 0.9 mg/dL (0.8-1.3); EST CRCL DRUG DOSING (CG) 95.8 mL/min; POTASSIUM,K 3.6 mmol/L (3.5-5.1)
[2022-07-23 12:17] VITALS: BP 113/71; PULSE 55
== END 2022-07-23 11:07 | disposition home or self-care (01) | DRG 383 ==
LOC: MW.ED 02:12 → EEVIPCON 06:06 → MW.MS 06:06
PROVIDERS: ADMIT Internal Medicine; ATTEND Internal Medicine
DX: L03.115 Cellulitis of right lower limb (principal); Z68.42 Body mass index [BMI] 45.0-49.9, adult; I10 Essential (primary) hypertension; E78.5 Hyperlipidemia, unspecified; I48.91 Unspecified atrial fibrillation; E66.9 Obesity, unspecified; G47.30 Sleep apnea, unspecified; E11.9 Type 2 diabetes mellitus without complications; I87.8 Other specified disorders of veins; N30.90 Cystitis, unspecified without hematuria; Z88.8 Allergy status to other drugs, medicaments and biological substances; Z79.01 Long term (current) use of anticoagulants; Z79.899 Other long term (current) drug therapy; Z86.718 Personal history of other venous thrombosis and embolism; Z98.890 Other specified postprocedural states; Z90.89 Acquired absence of other organs; Z93.3 Colostomy status
CPT/HCPCS: 36415; 71045; 71045-26; 71275; 71275-26; 73590-26-RT; 73590-RT; 80048; 80053; 81001; 82803; 83036; 83605; 83735; 83880; 84484; 85025; 85379; 85610; 85730; 87040; 87070; 87081; 87205; 87641; 93005; 96365; 96366; 96367; 99221; 99239; 99285-25; A9270-GY; J0690; J2543; J3370; J3490; J7030; Q9967; U0002

== ENCOUNTER 2022-09-29 17:49 | Emergency (ER) | payer BC ==
[2022-09-29] MEDS ORDERED: Methocarbamol 750 MG TAB PO STA (18:13)
[2022-09-29 19:25] VITALS: BP 128/76; PULSE 60
== END 2022-09-29 19:23 | disposition home or self-care (01) ==
LOC: MW.ED 17:49
DX: M25.512 Pain in left shoulder (principal); E66.9 Obesity, unspecified; Z68.42 Body mass index [BMI] 45.0-49.9, adult; Z88.8 Allergy status to other drugs, medicaments and biological substances; Z79.01 Long term (current) use of anticoagulants
CPT/HCPCS: 73030; 99283; A9270; 99282

== ENCOUNTER 2023-01-29 10:06 | Emergency (ER) | payer OTHER, BC ==
[2023-01-29 12:00] VITALS: BP 138/74; PULSE 67
== END 2023-01-29 12:01 | disposition home or self-care (01) ==
LOC: MW.ED 10:06
DX: S90.211A Contusion of right great toe with damage to nail, initial encounter (principal); I10 Essential (primary) hypertension; E66.9 Obesity, unspecified; Z68.42 Body mass index [BMI] 45.0-49.9, adult; Z79.01 Long term (current) use of anticoagulants; Z79.899 Other long term (current) drug therapy; Z88.7 Allergy status to serum and vaccine; Z88.8 Allergy status to other drugs, medicaments and biological substances; W20.8XXA Other cause of strike by thrown, projected or falling object, initial encounter; Y99.0 Civilian activity done for income or pay
CPT/HCPCS: 11740; 73630-26-RT; 73630-RT; 99283

== ENCOUNTER 2023-03-24 16:18 | Emergency (ER) | payer BC, OTHER ==
[2023-03-24 17:03] LABS: BASOPHILS ABSOLUTE AUTO 0.05 K/uL (0.00-0.20); BASOPHILS PERCENT AUTO 0.7 % (0.0-1.0); EOSINOPHILS ABSOLUTE AUTO 0.14 K/uL (0.00-0.45); EOSINOPHILS PERCENT AUTO 1.9 % (0.0-6.0); HEMATOCRIT 40.3 % (42.0-52.0); HEMOGLOBIN 13.1 g/dL (14.0-18.0); IMMATURE GRAN ABSOLUTE AUTO 0.02 K/uL (0.00-0.05); IMMATURE GRAN PERCENT AUTO 0.3 % (0.0-0.4); LYMPHOCYTES ABSOLUTE AUTO 1.44 K/uL (1.00-4.80); MEAN CORPUSCULAR HEMOGLOBIN 30.6 pg (28.0-32.0); MEAN CORPUSCULAR HGB CONC 32.5 g/dL (32.0-36.0); MEAN CORPUSCULAR VOLUME 94.2 fL (83.0-99.0); MEAN PLATELET VOLUME 9.6 fL (9.4-12.4); MONOCYTES ABSOLUTE AUTO 0.75 K/uL (0.00-0.80); MONOCYTES PERCENT AUTO 10.4 % (0.0-8.0); NEUTROPHILS ABSOLUTE AUTO 4.81 K/uL (1.80-7.70); NEUTROPHILS PERCENT AUTO 66.7 % (41.0-71.0); PLATELET COUNT,PLT 151 K/uL (150-400); RED BLOOD CELL COUNT 4.28 M/uL (4.52-5.90); WHITE BLOOD CELL COUNT,WBC 7.21 K/uL (3.9-11.3)
[2023-03-24 17:18] LABS: INR 2.36 (0.86-1.11)
[2023-03-24 17:27] VITALS: PULSE 50
[2023-03-24 17:30] LABS: A/G RATIO 0.8 (0.9-1.6); ALBUMIN 3.4 g/dL (3.4-5.0); BILIRUBIN TOTAL 0.5 mg/dL (0.2-1.0); CALCIUM 8.8 mg/dL (8.5-10.1); CARBON DIOXIDE,CO2 28.1 mmol/L (21.0-32.0); EST CRCL DRUG DOSING (CG) 85.14 mL/min; POTASSIUM,K 4.3 mmol/L (3.5-5.1); PROTEIN TOTAL,TP 7.9 g/dL (6.4-8.2)
[2023-03-24 18:47] VITALS: BP 121/68
== END 2023-03-24 19:09 | disposition home or self-care (01) ==
LOC: MW.ED 16:18
DX: L03.115 Cellulitis of right lower limb (principal); I10 Essential (primary) hypertension; E66.9 Obesity, unspecified; Z79.01 Long term (current) use of anticoagulants; Z79.899 Other long term (current) drug therapy; Z88.8 Allergy status to other drugs, medicaments and biological substances; Z68.42 Body mass index [BMI] 45.0-49.9, adult
CPT/HCPCS: 36415; 80053; 85025; 85610; 93971; 93971-26; 99283; 99284

== ENCOUNTER 2023-07-11 14:12 | Inpatient (IN) | payer BC ==
[2023-07-11 17:13] LABS: CORONAVIRUS COVID-19 NAA NEGATIVE (NEGATIVE); INFLUENZA A NAA NEGATIVE (NEGATIVE); INFLUENZA B NAA NEGATIVE (NEGATIVE); RESPIRATORY SYNCYTIAL VIR NAA NEGATIVE (NEGATIVE)
[2023-07-11] MEDS: Acetaminophen 500 MG Tab PO ONE (17:15)
[2023-07-11] MEDS: Sodium Chloride 0.9% 1,000 ML IV ONE (17:15)
[2023-07-11] MEDS: Sodium Chloride 0.9% 10 ML Syringe FLUSH PRN (17:16)
[2023-07-11] MEDS: Sodium Chloride 0.9% 2.5 ML Syringe FLUSH PRN (17:16)
[2023-07-11 17:31] LABS: BASOPHILS ABSOLUTE AUTO 0.05 K/uL (0.00-0.20); BASOPHILS PERCENT AUTO 0.3 % (0.0-1.0); EOSINOPHILS ABSOLUTE AUTO 0.02 K/uL (0.00-0.45); EOSINOPHILS PERCENT AUTO 0.1 % (0.0-6.0); HEMATOCRIT 41.9 % (42.0-52.0); HEMOGLOBIN 13.9 g/dL (14.0-18.0); IMMATURE GRAN ABSOLUTE AUTO 0.06 K/uL (0.00-0.05); IMMATURE GRAN PERCENT AUTO 0.4 % (0.0-0.4); LYMPHOCYTES ABSOLUTE AUTO 0.44 K/uL (1.00-4.80); LYMPHOCYTES PERCENT AUTO 2.8 % (24.0-44.0); MEAN CORPUSCULAR HGB CONC 33.2 g/dL (32.0-36.0); MEAN CORPUSCULAR VOLUME 93.5 fL (83.0-99.0); MEAN PLATELET VOLUME 9.3 fL (9.4-12.4); MONOCYTES ABSOLUTE AUTO 1.12 K/uL (0.00-0.80); NEUTROPHILS ABSOLUTE AUTO 14.27 K/uL (1.80-7.70); NEUTROPHILS PERCENT AUTO 89.4 % (41.0-71.0); PLATELET COUNT,PLT 135 K/uL (150-400); RED BLOOD CELL COUNT 4.48 M/uL (4.52-5.90); WHITE BLOOD CELL COUNT,WBC 15.96 K/uL (3.9-11.3)
[2023-07-11 17:47] LABS: INR 2.05 (0.86-1.11)
[2023-07-11 18:10] LABS: LACTIC ACID 0.9 mmol/L (0.4-2.0)
[2023-07-11 18:17] LABS: A/G RATIO 0.8 (0.9-1.6); ALBUMIN 3.5 g/dL (3.4-5.0); BILIRUBIN TOTAL 1.2 mg/dL (0.2-1.0); CALCIUM 8.7 mg/dL (8.5-10.1); CREATININE 1.3 mg/dL (0.8-1.3); EST CRCL DRUG DOSING (CG) 65.5 mL/min; POTASSIUM,K 4.8 mmol/L (3.5-5.1); PROTEIN TOTAL,TP 7.9 g/dL (6.4-8.2)
[2023-07-11] MEDS: Iopamidol 755 MG/ML 500 ML Multipack Bottle IVPUSH STA (19:06)
[2023-07-11 20:39] LABS: APPEARANCE,URINE SLT CLOUDY; BILIRUBIN,URINE NEGATIVE (NEGATIVE); GLUCOSE,URINE NEGATIVE (NEGATIVE); KETONES,URINE NEGATIVE (NEGATIVE); LEUKOCYTE ESTERASE,URINE TRACE (NEGATIVE); NITRITE,URINE POSITIVE (NEGATIVE); OCCULT BLOOD,URINE MODERATE (NEGATIVE); PROTEIN,URINE NEGATIVE (NEGATIVE)
[2023-07-11 20:49] LABS: COLOR,URINE DARK YELLOW
[2023-07-11] MEDS: Meropenem 500 MG SDV IVPUSH ONE (21:28)
[2023-07-11 21:35] LABS: BACTERIA,URINE 2+ (NEGATIVE); EPITHELIAL CELLS,URINE NOT SEEN (NONE-FEW)
[2023-07-11] MEDS: Cefepime 2 GM in Sodium Chloride 0.9% 50 ML IV ONE (21:42)
[2023-07-12] MEDS ORDERED: traMADol 50 MG Tab PO PRN (01:00)
[2023-07-12] MEDS: cefTRIAXone 1 GM in Sodium Chloride 0.9% 50 ML IV SCH (01:39)
[2023-07-12] MEDS ORDERED: Acetaminophen 325 MG Tab PO PRN (02:34)
[2023-07-12] MEDS ORDERED: Naloxone 0.4 MG/ML SDV IVPUSH PRN (02:58)
[2023-07-12] MEDS: Morphine 2 MG/ML SYRINGE IVPUSH ONE (03:11)
[2023-07-12] MEDS: Pantoprazole 40 MG in Sodium Chloride 0.9% 10 ML IVPUSH ONE (03:16)
[2023-07-12 06:57] LABS: BASOPHILS ABSOLUTE AUTO 0.04 K/uL (0.00-0.20); BASOPHILS PERCENT AUTO 0.3 % (0.0-1.0); EOSINOPHILS ABSOLUTE AUTO 0.02 K/uL (0.00-0.45); EOSINOPHILS PERCENT AUTO 0.1 % (0.0-6.0); HEMATOCRIT 39.6 % (42.0-52.0); HEMOGLOBIN 12.9 g/dL (14.0-18.0); IMMATURE GRAN ABSOLUTE AUTO 0.07 K/uL (0.00-0.05); IMMATURE GRAN PERCENT AUTO 0.4 % (0.0-0.4); LYMPHOCYTES ABSOLUTE AUTO 0.48 K/uL (1.00-4.80); LYMPHOCYTES PERCENT AUTO 3.1 % (24.0-44.0); MEAN CORPUSCULAR HEMOGLOBIN 31.4 pg (28.0-32.0); MEAN CORPUSCULAR HGB CONC 32.6 g/dL (32.0-36.0); MEAN CORPUSCULAR VOLUME 96.4 fL (83.0-99.0); MEAN PLATELET VOLUME 9.6 fL (9.4-12.4); MONOCYTES ABSOLUTE AUTO 1.33 K/uL (0.00-0.80); MONOCYTES PERCENT AUTO 8.5 % (0.0-8.0); NEUTROPHILS ABSOLUTE AUTO 13.76 K/uL (1.80-7.70); NEUTROPHILS PERCENT AUTO 87.6 % (41.0-71.0); PLATELET COUNT,PLT 113 K/uL (150-400); RED BLOOD CELL COUNT 4.11 M/uL (4.52-5.90)
[2023-07-12] MEDS: Iopamidol 755 MG/ML 500 ML Multipack Bottle IVPUSH ONE (07:03)
[2023-07-12 07:10] LABS: INR 1.86 (0.86-1.11)
[2023-07-12 07:41] LABS: CALCIUM 8.1 mg/dL (8.5-10.1); CARBON DIOXIDE,CO2 28.1 mmol/L (21.0-32.0); CREATININE 1.2 mg/dL (0.8-1.3); EST CRCL DRUG DOSING (CG) 70.95 mL/min; POTASSIUM,K 4.3 mmol/L (3.5-5.1)
[2023-07-12] MEDS: Losartan 50 MG Tab PO SCH (10:09)
[2023-07-12] MEDS ORDERED: Cefepime 2 GM in Sodium Chloride 0.9% 50 ML IV SCH (11:15)
[2023-07-12] MEDS ORDERED: Norepinephrine Bit/D5W Premix 250 ML IV SCH (11:15)
[2023-07-12] MEDS: Sodium Chloride 0.9% 1,000 ML IV ONE ×2 (11:32→13:05)
[2023-07-12] MEDS: Cefepime 2 GM in Sodium Chloride 0.9% 50 ML IV SCH (11:32)
[2023-07-12 12:48] LABS: LACTIC ACID 1.1 mmol/L (0.4-2.0)
[2023-07-12] MEDS: VANCOmycin 2 GM/400 ML 2 GM in Premix Bag 1 BAG IV ONE (13:13)
[2023-07-12] MEDS: Warfarin 5 MG, Warfarin 2.5 MG PO ONE (14:02)
[2023-07-12] MEDS: Sodium Chloride 0.9% 500 ML IV SCH (14:02)
[2023-07-12] MEDS: Warfarin Sliding Scale PO SCH (14:38)
[2023-07-13 06:32] LABS: INR 1.5 (0.86-1.11)
[2023-07-13 06:40] LABS: BASOPHILS ABSOLUTE AUTO 0.02 K/uL (0.00-0.20); BASOPHILS PERCENT AUTO 0.2 % (0.0-1.0); EOSINOPHILS ABSOLUTE AUTO 0.08 K/uL (0.00-0.45); EOSINOPHILS PERCENT AUTO 0.9 % (0.0-6.0); HEMATOCRIT 37.7 % (42.0-52.0); HEMOGLOBIN 12.1 g/dL (14.0-18.0); IMMATURE GRAN ABSOLUTE AUTO 0.02 K/uL (0.00-0.05); IMMATURE GRAN PERCENT AUTO 0.2 % (0.0-0.4); LYMPHOCYTES ABSOLUTE AUTO 0.92 K/uL (1.00-4.80); LYMPHOCYTES PERCENT AUTO 10.1 % (24.0-44.0); MEAN CORPUSCULAR HEMOGLOBIN 31.7 pg (28.0-32.0); MEAN CORPUSCULAR HGB CONC 32.1 g/dL (32.0-36.0); MEAN CORPUSCULAR VOLUME 98.7 fL (83.0-99.0); MEAN PLATELET VOLUME 9.7 fL (9.4-12.4); MONOCYTES ABSOLUTE AUTO 1.32 K/uL (0.00-0.80); MONOCYTES PERCENT AUTO 14.5 % (0.0-8.0); NEUTROPHILS ABSOLUTE AUTO 6.73 K/uL (1.80-7.70); NEUTROPHILS PERCENT AUTO 74.1 % (41.0-71.0); PLATELET COUNT,PLT 124 K/uL (150-400); RED BLOOD CELL COUNT 3.82 M/uL (4.52-5.90); WHITE BLOOD CELL COUNT,WBC 9.09 K/uL (3.9-11.3)
[2023-07-13 06:56] LABS: A/G RATIO 0.6 (0.9-1.6); ALBUMIN 2.7 g/dL (3.4-5.0); BILIRUBIN TOTAL 0.6 mg/dL (0.2-1.0); CALCIUM 7.9 mg/dL (8.5-10.1); CARBON DIOXIDE,CO2 26.5 mmol/L (21.0-32.0); EST CRCL DRUG DOSING (CG) 85.14 mL/min; PHOSPHORUS 2.7 mg/dL (2.6-4.7); POTASSIUM,K 4.6 mmol/L (3.5-5.1); PROTEIN TOTAL,TP 6.9 g/dL (6.4-8.2)
[2023-07-13] MEDS: Warfarin 10 MG Tab PO SCH (13:52)
[2023-07-13 14:51] VITALS: BP 121/62; PULSE 51
== END 2023-07-13 15:00 | disposition home or self-care (01) | DRG 720 ==
LOC: MW.ED 14:12 → MW.MS 22:01 → MW.ICU 07-12 11:49
PROVIDERS: ADMIT Internal Medicine; ATTEND Internal Medicine
DX: A41.9 Sepsis, unspecified organism (principal); R65.20 Severe sepsis without septic shock; N30.00 Acute cystitis without hematuria; I95.9 Hypotension, unspecified; D72.829 Elevated white blood cell count, unspecified; I10 Essential (primary) hypertension; M06.9 Rheumatoid arthritis, unspecified; E66.9 Obesity, unspecified; Z88.8 Allergy status to other drugs, medicaments and biological substances; Z79.01 Long term (current) use of anticoagulants; Z79.899 Other long term (current) drug therapy; Z87.81 Personal history of (healed) traumatic fracture; Z68.42 Body mass index [BMI] 45.0-49.9, adult; Z90.89 Acquired absence of other organs
CPT/HCPCS: 0241U; 36415; 71045; 71045-26; 71275; 71275-26; 74177; 74177-26; 76700; 76700-26; 80048; 80053; 80202; 81001; 83605; 83690; 83735; 84100; 84484; 85025; 85610; 87040; 87086; 87088; 87186; 96361; 96374; 99222; 99238; 99284; 99285-25; A9270-GY; C9113; J0692; J0696; J2185; J2270; J3370; J3490; J7030; J7040; J7050; Q9967

== ENCOUNTER 2023-08-13 11:18 | Emergency (ER) | payer BC, OTHER ==
[2023-08-13 12:00] VITALS: BP 128/63; PULSE 60
== END 2023-08-13 11:59 | disposition home or self-care (01) ==
LOC: MW.ED 11:18
DX: K08.89 Other specified disorders of teeth and supporting structures (principal); I10 Essential (primary) hypertension; E66.9 Obesity, unspecified; Z79.899 Other long term (current) drug therapy; Z88.8 Allergy status to other drugs, medicaments and biological substances; Z68.42 Body mass index [BMI] 45.0-49.9, adult
CPT/HCPCS: 99282

== ENCOUNTER 2024-01-15 16:34 | Emergency (ER) | payer BC ==
[2024-01-15 18:42] LABS: INR 4.02 (0.86-1.11)
[2024-01-15 19:42] VITALS: BP 138/73; PULSE 53
== END 2024-01-15 19:41 | disposition home or self-care (01) ==
LOC: MW.ED 16:34
DX: M25.571 Pain in right ankle and joints of right foot (principal); R79.1 Abnormal coagulation profile; I10 Essential (primary) hypertension; E66.9 Obesity, unspecified; Z79.01 Long term (current) use of anticoagulants; Z79.899 Other long term (current) drug therapy; Z88.8 Allergy status to other drugs, medicaments and biological substances; Z88.4 Allergy status to anesthetic agent; Z75.8 Other problems related to medical facilities and other health care; Z68.43 Body mass index [BMI] 50.0-59.9, adult; X58.XXXA Exposure to other specified factors, initial encounter
CPT/HCPCS: 36415; 73610-26-RT; 73610-RT; 73630-26-RT; 73630-RT; 85610; 99283

== ENCOUNTER 2024-02-10 20:38 | Emergency (ER) | payer BC ==
[2024-02-10] MEDS: Albuterol/Ipratropium 3.0-0.5 MG/3 ML Neb Soln NEB ONE (22:28)
[2024-02-11 00:30] LABS: BASOPHILS ABSOLUTE AUTO 0.02 K/uL (0.00-0.20); BASOPHILS PERCENT AUTO 0.2 % (0.0-1.0); HEMATOCRIT 41.8 % (42.0-52.0); IMMATURE GRAN ABSOLUTE AUTO 0.21 K/uL (0.00-0.05); IMMATURE GRAN PERCENT AUTO 1.7 % (0.0-0.4); LYMPHOCYTES ABSOLUTE AUTO 0.78 K/uL (1.00-4.80); LYMPHOCYTES PERCENT AUTO 6.5 % (24.0-44.0); MEAN CORPUSCULAR HEMOGLOBIN 31.2 pg (28.0-32.0); MEAN CORPUSCULAR HGB CONC 33.5 g/dL (32.0-36.0); MEAN CORPUSCULAR VOLUME 93.1 fL (83.0-99.0); MEAN PLATELET VOLUME 9.4 fL (9.4-12.4); MONOCYTES ABSOLUTE AUTO 0.88 K/uL (0.00-0.80); MONOCYTES PERCENT AUTO 7.3 % (0.0-8.0); NEUTROPHILS ABSOLUTE AUTO 10.18 K/uL (1.80-7.70); NEUTROPHILS PERCENT AUTO 84.3 % (41.0-71.0); PLATELET COUNT,PLT 150 K/uL (150-400); RED BLOOD CELL COUNT 4.49 M/uL (4.52-5.90); WHITE BLOOD CELL COUNT,WBC 12.07 K/uL (3.9-11.3)
[2024-02-11 01:07] LABS: A/G RATIO 0.8 (0.9-1.6); ALANINE AMINOTRANSFERASE,ALT 51 IU/L (14-63); ALBUMIN 3.4 g/dL (3.4-5.0); ALKALINE PHOSPHATASE 101 U/L (46-116); ASPARTATE AMNIOTRANSFERASE,AST 32 IU/L (15-37); BILIRUBIN TOTAL 0.5 mg/dL (0.2-1.0); BLOOD UREA NITROGEN,BUN 25 mg/dL (7.0-18.0); CALCIUM 9.1 mg/dL (8.5-10.1); CARBON DIOXIDE,CO2 32.5 mmol/L (21.0-32.0); CHLORIDE,CL 101 mmol/L (98-107); CREATININE 0.9 mg/dL (0.8-1.3); GLUCOSE RANDOM 115 mg/dL (74-106); POTASSIUM,K 4.8 mmol/L (3.5-5.1); PRO B-TYPE NATRIUR PEPT,BNPPRO 900 pg/mL (0-125); PROTEIN TOTAL,TP 7.7 g/dL (6.4-8.2); SODIUM,NA 137 mmol/L (136-148)
[2024-02-11 01:14] LABS: ESTIMATED GFR 97 mL/min (>60)
[2024-02-11] MEDS: Furosemide 40 MG/4 ML VIAL IVPUSH ONE (02:04)
[2024-02-11] MEDS: Furosemide 40 MG Tab PO ONE (02:06)
[2024-02-11 02:10] VITALS: BP 146/78; PULSE 52
== END 2024-02-11 02:09 | disposition home or self-care (01) ==
LOC: MW.ED 20:38
DX: I11.0 Hypertensive heart disease with heart failure (principal); I50.9 Heart failure, unspecified; E66.9 Obesity, unspecified; Z88.5 Allergy status to narcotic agent; Z88.8 Allergy status to other drugs, medicaments and biological substances; Z79.01 Long term (current) use of anticoagulants; Z79.899 Other long term (current) drug therapy
CPT/HCPCS: 36415; 71045; 80053; 83880; 84484; 85025; 99285; A9270; J7620-GY

== ENCOUNTER 2024-04-19 11:48 | Emergency (ER) | payer BC ==
[2024-04-19] MEDS: Acetaminophen 325 MG Tab PO ONE (14:02)
[2024-04-19] MEDS: oxyCODONE 5 MG Tab PO ONE (14:02)
[2024-04-19 14:50] VITALS: BP 112/55; PULSE 53
== END 2024-04-19 14:49 | disposition home or self-care (01) ==
LOC: MW.ED 11:48
DX: M25.562 Pain in left knee (principal); I10 Essential (primary) hypertension; E66.9 Obesity, unspecified; Z88.8 Allergy status to other drugs, medicaments and biological substances; Z79.01 Long term (current) use of anticoagulants; Z79.899 Other long term (current) drug therapy; Z68.35 Body mass index [BMI] 35.0-35.9, adult
CPT/HCPCS: 73562; 99283; A9270

== ENCOUNTER 2024-06-27 00:41 | Emergency (ER) | payer BC ==
[2024-06-27 01:26] LABS: BASOPHILS ABSOLUTE AUTO 0.03 K/uL (0.00-0.20); BASOPHILS PERCENT AUTO 0.2 % (0.0-1.0); EOSINOPHILS ABSOLUTE AUTO 0.03 K/uL (0.00-0.45); EOSINOPHILS PERCENT AUTO 0.2 % (0.0-6.0); HEMATOCRIT 37.7 % (42.0-52.0); HEMOGLOBIN 12.7 g/dL (14.0-18.0); IMMATURE GRAN ABSOLUTE AUTO 0.03 K/uL (0.00-0.05); IMMATURE GRAN PERCENT AUTO 0.2 % (0.0-0.4); LYMPHOCYTES ABSOLUTE AUTO 1.02 K/uL (1.00-4.80); LYMPHOCYTES PERCENT AUTO 7.4 % (24.0-44.0); MEAN CORPUSCULAR HEMOGLOBIN 31.7 pg (28.0-32.0); MEAN CORPUSCULAR HGB CONC 33.7 g/dL (32.0-36.0); MEAN PLATELET VOLUME 9.4 fL (9.4-12.4); MONOCYTES ABSOLUTE AUTO 1.18 K/uL (0.00-0.80); MONOCYTES PERCENT AUTO 8.6 % (0.0-8.0); NEUTROPHILS ABSOLUTE AUTO 11.47 K/uL (1.80-7.70); NEUTROPHILS PERCENT AUTO 83.4 % (41.0-71.0); PLATELET COUNT,PLT 160 K/uL (150-400); RED BLOOD CELL COUNT 4.01 M/uL (4.52-5.90); WHITE BLOOD CELL COUNT,WBC 13.76 K/uL (3.9-11.3)
[2024-06-27 01:40] LABS: INR 2.57 (0.86-1.11); PTT,PARTIAL THROMBOPLSTIN TIME 42.5 SEC (23.9-30.7)
[2024-06-27 02:17] LABS: A/G RATIO 0.8 (0.9-1.6); ALBUMIN 3.4 g/dL (3.4-5.0); CALCIUM 8.8 mg/dL (8.5-10.1); CARBON DIOXIDE,CO2 27.6 mmol/L (21.0-32.0); CREATININE 1.1 mg/dL (0.8-1.3); EST CRCL DRUG DOSING (CG) 76.42 mL/min; MAGNESIUM 1.9 mg/dL (1.8-2.4); POTASSIUM,K 3.9 mmol/L (3.5-5.1); PROTEIN TOTAL,TP 7.5 g/dL (6.4-8.2)
[2024-06-27 03:00] VITALS: BP 143/70; PULSE 73
== END 2024-06-27 03:00 | disposition home or self-care (01) ==
LOC: MW.ED 00:41
DX: R53.1 Weakness (principal); R53.83 Other fatigue; J06.9 Acute upper respiratory infection, unspecified; E66.01 Morbid (severe) obesity due to excess calories; I10 Essential (primary) hypertension; Z79.899 Other long term (current) drug therapy; Z88.8 Allergy status to other drugs, medicaments and biological substances
CPT/HCPCS: 36415; 71045; 71045-26; 80053; 83735; 83880; 84484; 85025; 85610; 85730; 87428-QW; 93005; 93010; 99283; 99285

== ENCOUNTER 2024-10-07 12:30 | Emergency (ER) | payer BC ==
[2024-10-07 13:54] VITALS: BP 136/65; PULSE 54
== END 2024-10-07 13:58 | disposition home or self-care (01) ==
LOC: MW.ED 12:30
DX: J02.9 Acute pharyngitis, unspecified (principal); Z86.16 Personal history of COVID-19; I10 Essential (primary) hypertension; Z88.8 Allergy status to other drugs, medicaments and biological substances; Z88.4 Allergy status to anesthetic agent; Z79.01 Long term (current) use of anticoagulants; Z79.899 Other long term (current) drug therapy
CPT/HCPCS: 87651; 96374; 99283; A9270; J1100

== ENCOUNTER 2024-10-17 01:41 | Emergency (ER) | payer BC ==
[2024-10-17] MEDS: Amoxicillin/Clavulanate K 875-125 MG Tab PO ONE (02:19)
[2024-10-17 03:46] VITALS: BP 160/73; PULSE 57
== END 2024-10-17 03:46 | disposition home or self-care (01) ==
LOC: MW.ED 01:41
DX: K02.9 Dental caries, unspecified (principal); K13.0 Diseases of lips; I10 Essential (primary) hypertension; Z88.0 Allergy status to penicillin; Z88.8 Allergy status to other drugs, medicaments and biological substances; Z79.01 Long term (current) use of anticoagulants; Z79.899 Other long term (current) drug therapy
CPT/HCPCS: 99283; A9270; J8540; 99284

== ENCOUNTER 2024-12-18 13:35 | Emergency (ER) | payer BC ==
[2024-12-18 15:04] LABS: BASOPHILS ABSOLUTE AUTO 0.05 K/uL (0.00-0.20); BASOPHILS PERCENT AUTO 0.7 % (0.0-1.0); EOSINOPHILS ABSOLUTE AUTO 0.11 K/uL (0.00-0.45); EOSINOPHILS PERCENT AUTO 1.5 % (0.0-6.0); IMMATURE GRAN ABSOLUTE AUTO 0.04 K/uL (0.00-0.05); IMMATURE GRAN PERCENT AUTO 0.5 % (0.0-0.4); LYMPHOCYTES ABSOLUTE AUTO 1.57 K/uL (1.00-4.80); LYMPHOCYTES PERCENT AUTO 21.0 % (24.0-44.0); MEAN PLATELET VOLUME 9.4 fL (9.4-12.4); MONOCYTES ABSOLUTE AUTO 0.71 K/uL (0.00-0.80); MONOCYTES PERCENT AUTO 9.5 % (0.0-8.0); NEUTROPHILS ABSOLUTE AUTO 4.99 K/uL (1.80-7.70); NEUTROPHILS PERCENT AUTO 66.8 % (41.0-71.0); NRBC ABSOLUTE 0.00 K/uL (0.00-0.02); NRBC PERCENT 0.0 /100WBC (0.0-0.2); PLATELET COUNT,PLT 159 K/uL (150-400); RED BLOOD CELL COUNT 4.33 M/uL (4.52-5.90); WHITE BLOOD CELL COUNT,WBC 7.47 K/uL (3.9-11.3)
[2024-12-18 15:30] LABS: A/G RATIO 0.8 (0.9-1.6); ALANINE AMINOTRANSFERASE,ALT 34.0 IU/L (14-63); ASPARTATE AMNIOTRANSFERASE,AST 26.0 IU/L (15-37); BILIRUBIN TOTAL 0.5 mg/dL (0.2-1.0); BLOOD UREA NITROGEN,BUN 28.0 mg/dL (7.0-18.0); CARBON DIOXIDE,CO2 29.9 mmol/L (21.0-32.0); CHLORIDE,CL 102.0 mmol/L (98-107); CREATININE 0.8 mg/dL (0.8-1.3); EST CRCL DRUG DOSING (CG) 103.74 mL/min; GLUCOSE RANDOM 96.0 mg/dL (74-106); POTASSIUM,K 4.4 mmol/L (3.5-5.1); PROTEIN TOTAL,TP 7.9 g/dL (6.4-8.2); SODIUM,NA 140.0 mmol/L (136-148)
[2024-12-18 15:32] LABS: ESTIMATED GFR 99.0 mL/min (>60)
[2024-12-18 15:58] VITALS: PULSE 54
[2024-12-18 16:01] VITALS: BP 154/77
== END 2024-12-18 16:02 | disposition home or self-care (01) ==
LOC: MW.ED 13:35
DX: I83.891 Varicose veins of right lower extremity with other complications (principal); I10 Essential (primary) hypertension; Z88.0 Allergy status to penicillin; Z88.4 Allergy status to anesthetic agent; Z88.8 Allergy status to other drugs, medicaments and biological substances; Z79.01 Long term (current) use of anticoagulants; Z86.718 Personal history of other venous thrombosis and embolism
CPT/HCPCS: 36415; 80053; 85025; 93971-26-RT; 93971-RT; 99284